=== PATIENT | male | born 1970 | race Caucasian/White ===

== ENCOUNTER 2016-12-28 16:55 | Emergency (ER) | payer SELFPAY ==
[~2016-12-28] VITALS: Ht 182.9 cm; Wt 102.3 kg
[~2016-12-28 16:55] MED LIST: ACET1TAB84 PO
[2016-12-28 17:01] VITALS: TEMP 36.6; Ht 182.9 cm; Wt 102.3 kg
[2016-12-28] MEDS ORDERED: SODIUM CHLORIDE 0.9% 1000ML 2,000 ML IV STA (17:18)
[2016-12-28] MEDS ORDERED: KETOROLAC TROMETHAMINE 30 MG/ML VIAL IV STA (17:18)
[2016-12-28] MEDS ORDERED: ONDANSETRON INJ 2 MG/ML 2 ML VIAL IV STA (17:18)
[2016-12-28 17:41] LABS: BASO % 0.1 %; BASO ABS # 0.02 K/uL (0-0.2); COMPLETE YES; EOS % 0.3 %; HEMATOCRIT 47.2 % (42-52); IG% 0.3 %; LYMPH ABS # 1.08 K/uL (1.2-3.4); MEAN CELL VOLUME 97.3 fL (80-100); MEAN CORPUSCULAR HEMOGLOBIN 33.6 pg (25-34); MEAN CORPUSCULAR HGB CONC 34.5 g/dl (32-36); MEAN PLATELET VOLUME 10.1 fL (7.4-10.4); MONO % 6.9 %; NEUT % 85.4 %; PLATELET COUNT 324 K/uL (130-400); RED BLOOD COUNT 4.85 M/uL (4.7-6.1); WHITE BLOOD COUNT 15.48 K/uL (4.8-10.8)
[2016-12-28] MEDS ORDERED: IBUP-103 PO (17:48)
[2016-12-28 17:54] LABS: URINE APPEARANCE CLEAR (CLEAR); URINE COLOR DK YELLOW; URINE NITRITE NEG (NEG); URINE SPECIFIC GRAVITY 1.031 (1.000-1.030); UROBILINOGEN NEG (NEG); ZZUR CULT IF INDIC CLEAN CATCH NO
[2016-12-28 17:57] LABS: MANUAL MICROSCOPIC REQUIRED? NO; REVIEW REQ? NO; URINE BILIRUBIN NEG (NEG)
[2016-12-28 18:04] LABS: BUN/CREATININE RATIO 16.1 (10-20); CALCIUM 9.5 mg/dl (8.5-10.1); CREATININE 1.07 mg/dl (0.60-1.40); POTASSIUM 3.7 mmol/L (3.5-5.1)
--- NOTE | 2016-12-28 18:23 | DIAGNOSTIC IMAGING REPORT ---
CT OF THE ABDOMEN AND PELVIS WITHOUT CONTRAST CLINICAL HISTORY: Left flank pain, nausea and vomiting. COMPARISON STUDY: CT of the abdomen and pelvis January 17, 2015 and KUB January 31, 2015. TECHNIQUE: Axial images of the abdomen and pelvis were obtained without IV contrast. Images were reviewed in the axial, sagittal, and coronal planes. A dose lowering technique was utilized adhering to the principles of ALARA. FINDINGS: Note is made of a 2 mm calculus within the lower pole of the right kidney. No ureteral calculi are present and there is no hydronephrosis. Note is made of mild infiltration adjacent to the distal stomach with apparent wall thickening of the distal gastric antrum and the pylorus. There is no free air or abscess. Low attenuation bilateral adrenal nodules are unchanged since CT of January 17, 2015 represent adenomas. There is no biliary or pancreatic ductal dilatation. No peripancreatic fluid collections are present. The appendix is normal. There is no evidence for a bowel obstruction. There is trace fluid within the pelvis. There is severe osteoarthritis of the left hip. No pelvic or abdominal lymphadenopathy is present. A 4 mm subpleural right lower lobe nodule is unchanged since CT of January 17, 2015 and is therefore benign. IMPRESSION: 1. Mild perigastric infiltration with apparent wall thickening of the gastric antrum and pylorus. The findings suggest gastritis. No free air. 2. 2 mm right renal calculus. No ureteral calculi or hydronephrosis. 3. Severe osteoarthritis of the left hip. Electronically signed by: Anton Singh M.D. 12/28/2016 6:22 PM Dictated Date/Time: 12/28/2016 6:12 PM
[2016-12-28] MEDS ORDERED: ONDA4TAB65 PO (18:42)
[2016-12-28] MEDS ORDERED: FAMO20TA11 PO (18:43)
[2016-12-28 18:49] VITALS: BP 141/82; PULSE 79; O2SAT 99
--- NOTE | 2016-12-28 18:57 | EMERGENCY ROOM VISIT NOTE ---
History Report prepared by Javi: Adri Bailey Under the Supervision of: Dr. Law Lei D.O. First contact with patient: 17:04 Chief Complaint: KIDNEY STONE Stated Complaint: VOMITING, KIDNEY STONE LT SIDE, NAUSEA History of Present Illness The patient is a 46 year old male who presents to the Emergency Room with complaints of constant left flank pain beginning 10 days ago. The patient states that he has a history of kidney stones and had one last 2 years ago that was 9mm and felt the same with his symptoms today. He reports that he has had a cough and runny nose and developed nausea and vomiting 1 week ago. He notes that he has not been able to keep food or liquids down and has been constipated for about 1 week. The patient complains of dehydration, abdominal cramping, and urinating dark yellow urine. He denies any fever and dysuria and notes that his last bowel movement was 1 week ago. He has 2 other family members that are sick with similar symptoms. Source of History: patient Onset: 10 days ago Position: other (left flank) Timing: constant Associated Symptoms: + cough, + nausea, + vomiting, + abdominal pain, + urinary symptoms, No fevers Review of Systems See HPI for pertinent positives & negatives. A total of 10 systems reviewed and were otherwise negative. Past Medical & Surgical Medical Problems: (1) Kidney stone Family History Diabetes mellitus FH: colon cancer Hypertension Social History Smoking Status: Current Every Day Smoker Alcohol Use: other Drug Use: none Marital Status: Occupation Status: employed Current/Historical Medications Scheduled Famotidine (Pepcid), 20 MG PO DAILY Ondansetron Hcl (Zofran), 4 MG PO TID Scheduled PRN Acetaminophen (Tylenol Arthritis Ext Rel), 650 MG PO UD PRN for Pain Ibuprofen Tab (Advil), 600 MG PO Q6H PRN for Pain Allergies Coded Allergies: No Known Allergies (Unverified , 02/01/15) Physical Exam Vital Signs Date Time Temp Pulse Resp B/P (MAP) Pulse Ox O2 Delivery O2 Flow Rate FiO2 12/28/16 18:49 79 18 141/82 99 12/28/16 17:01 36.6 83 18 125/83 99 Room Air Physical Exam GENERAL: Sitting up in bed, alert, well appearing, well nourished, no distress, non-toxic EYE EXAM: normal conjunctiva. OROPHARYNX: no exudate, no erythema, lips, buccal mucosa, and tongue normal and mucous membranes are moist NECK: supple, no nuchal rigidity, no adenopathy, non-tender LUNGS: Clear to auscultation. Normal chest wall mechanics HEART: no murmurs, S1 normal and S2 normal ABDOMEN: abdomen soft, minimal tenderness in left lower back tracking into left abdomen, normo-active bowel sounds, no masses, no rebound or guarding. BACK: Back is symmetrical on inspection and there is no deformity, no midline tenderness, no CVA tenderness. SKIN: no rashes and no bruising UPPER EXTREMITIES: upper extremities are grossly normal. LOWER EXTREMITIES: No pitting edema. NEURO EXAM: Normal sensorium, cranial nerves II-XII grossly intact, normal speech, no weakness of arms, no weakness of legs. ambulating without difficulty Medical Decision & Procedures ER Provider Diagnostic Interpretation: Radiology results as stated below per my review and the radiologist's interpretation: CT OF THE ABDOMEN AND PELVIS WITHOUT CONTRAST FINDINGS: Note is made of a 2 mm calculus within the lower pole of the right kidney. No ureteral calculi are present and there is no hydronephrosis. Note is made of mild infiltration adjacent to the distal stomach with apparent wall thickening of the distal gastric antrum and the pylorus. There is no free air or abscess. Low attenuation bilateral adrenal nodules are unchanged since CT of January 17, 2015 represent adenomas. There is no biliary or pancreatic ductal dilatation. No peripancreatic fluid collections are present. The appendix is normal. There is no evidence for a bowel obstruction. There is trace fluid within the pelvis. There is severe osteoarthritis of the left hip. No pelvic or abdominal lymphadenopathy is present. A 4 mm subpleural right lower lobe nodule is unchanged since CT of January 17, 2015 and is therefore benign. IMPRESSION: 1. Mild perigastric infiltration with apparent wall thickening of the gastric antrum and pylorus. The findings suggest gastritis. No free air. 2. 2 mm right renal calculus. No ureteral calculi or hydronephrosis. 3. Severe osteoarthritis of the left hip. Electronically signed by: Anton Singh M.D. 12/28/2016 6:22 PM Dictated Date/Time: 12/28/2016 6:12 PM Laboratory Results 12/28/16 17:30 Red Blood Count 4.85, Mean Corpuscular Volume 97.3, Mean Corpuscular Hemoglobin 33.6, Mean Corpuscular Hemoglobin Concent 34.5, Mean Platelet Volume 10.1, Neutrophils (%) (Auto) 85.4, Lymphocytes (%) (Auto) 7.0, Monocytes (%) (Auto) 6.9, Eosinophils (%) (Auto) 0.3, Basophils (%) (Auto) 0.1, Neutrophils # (Auto) 13.22, Lymphocytes # (Auto) 1.08, Monocytes # (Auto) 1.07, Eosinophils # (Auto) 0.05, Basophils # (Auto) 0.02 12/28/16 17:30 Test 12/28/16 17:20 12/28/16 17:30 Urine Color DK YELLOW Urine Appearance CLEAR (CLEAR) Urine pH 5.0 (4.5-7.5) Urine Specific Colt 1.031 (1.000-1.030) Urine Protein 1+ (NEG) Urine Glucose (UA) NEG (NEG) Urine Ketones 3+ (NEG) Urine Occult Blood TRACE (NEG) Urine Nitrite NEG (NEG) Urine Bilirubin NEG (NEG) Urine Urobilinogen NEG (NEG) Urine Leukocyte Esterase NEG (NEG) Urine WBC (Auto) 1-5 /hpf (0-5) Urine RBC (Auto) 0-4 /hpf (0-4) Urine Hyaline Casts (Auto) 1-5 /lpf (0-5) Urine Epithelial Cells (Auto) 5-10 /lpf (0-5) Urine Bacteria (Auto) NEG (NEG) White Blood Count 15.48 K/uL (4.8-10.8) Red Blood Count 4.85 M/uL (4.7-6.1) Hemoglobin 16.3 g/dL (14.0-18.0) Hematocrit 47.2 % (42-52) Mean Corpuscular Volume 97.3 fL (80-100) Mean Corpuscular Hemoglobin 33.6 pg (25-34) Mean Corpuscular Hemoglobin Concent 34.5 g/dl (32-36) Platelet Count 324 K/uL (130-400) Mean Platelet Volume 10.1 fL (7.4-10.4) Neutrophils (%) (Auto) 85.4 % Lymphocytes (%) (Auto) 7.0 % Monocytes (%) (Auto) 6.9 % Eosinophils (%) (Auto) 0.3 % Basophils (%) (Auto) 0.1 % Neutrophils # (Auto) 13.22 K/uL (1.4-6.5) Lymphocytes # (Auto) 1.08 K/uL (1.2-3.4) Monocytes # (Auto) 1.07 K/uL (0.11-0.59) Eosinophils # (Auto) 0.05 K/uL (0-0.5) Basophils # (Auto) 0.02 K/uL (0-0.2) RDW Standard Deviation 46.2 fL (36.4-46.3) RDW Coefficient of Variation 13.0 % (11.5-14.5) Immature Granulocyte % (Auto) 0.3 % Immature Granulocyte # (Auto) 0.04 K/uL (0.00-0.02) Anion Gap 11.0 mmol/L (3-11) Est Creatinine Clear Calc Drug Dose 104.5 ml/min Estimated GFR () 94.6 Estimated GFR (Non- 81.7 BUN/Creatinine Ratio 16.1 (10-20) Calcium Level 9.5 mg/dl (8.5-10.1) Total Bilirubin 0.5 mg/dl (0.2-1) Direct Bilirubin 0.2 mg/dl (0-0.2) Aspartate Amino Transf (AST/SGOT) 12 U/L (15-37) Alanine Aminotransferase (ALT/SGPT) 16 U/L (12-78) Alkaline Phosphatase 98 U/L (45-117) Total Protein 8.0 gm/dl (6.4-8.2) Albumin 3.9 gm/dl (3.4-5.0) Lipase 161 U/L (73-393) Laboratory results per my review. Medications Administered Medications (Trade) Dose Ordered Sig/Antonina Route Start Time Stop Time Status Last Admin Dose Admin Sodium Chloride 2,000 ml @ 999 mls/hr Q2H1M STAT IV 12/28/16 17:18 12/28/16 19:18 DC 12/28/16 17:38 999 MLS/HR Ondansetron HCl (Zofran Inj) 4 mg NOW STAT IV 12/28/16 17:18 12/28/16 17:19 DC 12/28/16 17:38 4 MG Ketorolac Tromethamine (Toradol Inj) 30 mg NOW STAT IV 12/28/16 17:18 12/28/16 17:19 DC 12/28/16 17:38 30 MG ED Course ED COURSE: Vital signs were reviewed and normal The patients medical record was reviewed The above diagnostic studies were performed and reviewed. ED treatments and interventions as stated above. 1704: The patient was evaluated in room B3. A complete history and physical examination was performed. 1718: Toradol Inj 30mg IV, Zofran Inj 4mg IV, Sodium Chloride 2000 ml @ 999 mls/ hr IV. 1856: Upon reevaluation, the patient is doing well.I discussed my findings with the patient and he understands and agrees with the treatment plan. Based on the patients age, coexisting illnesses, exam and lab findings the decision to treat as an outpatient was made. The patient remained stable while under my care. The patient appeared well at the time of discharge. Medical Decision Differential diagnoses includes but is not limited to gastritis, peptic ulcer disease, GERD, gallbladder disease, pancreatitis, small bowel obstruction, acute coronary syndrome, pericarditis, ischemic bowel, irritable bowel disease, irritable bowel syndrome, appendicitis, diverticulitis, malignancy, hernia, urinary tract infection, torsion, perforation, trauma, infectious. Patient is a 46-year-old male who presents to ER for abdominal pain associated with left flank pain. Abdominal exam was completely benign. Vitals are unremarkable. Mild leukocytosis. BMP along with LFTs, lipase, bilirubin and UA is fairly unremarkable. Favor the leukocytosis likely secondary to the vomiting. CT was negative with the exception of a gastritis. Patient was discharged with Zofran and Pepcid. I do favor the gastritis is likely secondary to the vomiting. Patient was feeling significantly better. He was discharged follow-up with PCP. Discussed with Pt concerning signs and symptoms to watch out for. Pt was instructed to follow up with their PCP and discussed with the patient their option to return to the ED at anytime for persistent or worsening symptoms. The appropriate anticipatory guidance and out-patient management, including indications for return to the emergency department, were explained at length to the patient and understood. Medication Reconcilliation Current Medication List: was personally reviewed by me Blood Pressure Screening Patient's blood pressure: Normal blood pressure Blood pressure disposition: Did not require urgent referral Impression Primary Impression: Gastritis Additional Impression: Left flank pain Scribe Attestation The scribe's documentation has been prepared under my direction and personally reviewed by me in its entirety. I confirm that the note above accurately reflects all work, treatment, procedures, and medical decision making performed by me. Departure Information Dispostion Home / Self-Care Prescriptions Famotidine (Pepcid) 20 Mg Tab 20 MG PO DAILY for 30 Days, #30 TAB Prov: Law Lei, DO 12/28/16 Ondansetron Hcl (ZOFRAN) 4 Mg Tab 4 MG PO TID for Nausea for 10 Days, #30 TAB Prov: Law Lei, DO 12/28/16 Referrals No Doctor, Assigned (PCP) Forms HOME CARE DOCUMENTATION FORM, IMPORTANT VISIT INFORMATION Patient Instructions My [facility] Additional Instructions Please follow up with your primary care doctor with in the next 24 hours. Any worsening of your symptoms, please return to the ED immediately. This includes any fevers greater than 100.4, worsening pain, chest pain, shortness breath, persistent nausea, vomiting, unable to eat or drink, or any other concerning signs or symptoms from your standpoint. Please take Zofran as needed for nausea. Problem Qualifiers Primary Impression: Gastritis Gastritis type: unspecified gastritis Chronicity: unspecified Gastritis bleeding: presence of bleeding unspecified Qualified Codes: K29.70 - Gastritis, unspecified, without bleeding
== END 2016-12-28 18:50 | disposition home or self-care (01) ==
LOC: C.EDB 16:56
DX: K29.70 Gastritis, unspecified, without bleeding (principal); R10.9 Unspecified abdominal pain; F17.200 Nicotine dependence, unspecified, uncomplicated; Z87.442 Personal history of urinary calculi; Z83.3 Family history of diabetes mellitus; Z82.49 Family history of ischemic heart disease and other diseases of the circulatory system; Z80.0 Family history of malignant neoplasm of digestive organs

== ENCOUNTER 2021-11-22 09:10 | Inpatient (IN) ==
[2021-11-22] MEDS ORDERED: FAMOTIDINE 20MG IV PUSH 20 MG/5 ML SYR IV STA (09:31)
[2021-11-22] MEDS ORDERED: SODIUM CHLORIDE 0.9% 1000ML 1,000 ML IV ONE (09:31)
[2021-11-22] MEDS ORDERED: ONDANSETRON INJ 2 MG/ML 2 ML VIAL IV STA (09:35)
[2021-11-22 10:14] LABS: Hematocrit (blood only) 47.6 % (40.1-51.0); Hemoglobin 16.1 g/dl (14.0-18.0); Mean Corpuscular Hemoglobin 34.5 pg (25.0-34.0); Mean Corpuscular Hgb Conc 33.8 g/dL (32.0-36.0); Mean Corpuscular Volume 102.1 fL (80.0-100.0); Mean Platelet Volume 9.7 fL (9.4-12.4); Platelet Count 285 K/uL (130-400); RDW Coefficient of Variation 13.4 % (11.5-14.5); RDW Standard Deviation 51.5 fL (36.4-46.3); Red Blood Count 4.66 M/uL (4.63-6.08); White Blood Count 16.23 K/ul (4.8-10.8)
[2021-11-22 10:32] LABS: Alanine Aminotransferase 8 U/L (7-52); Albumin Globulin Ratio 1.4 (0.9-2); Albumin Level 4.5 gm/dl (3.4-5.0); Alkaline Phosphatase 51 U/L (34-104); Anion Gap 13 (3-11); BUN Creatinine Ratio 19.4 (10-20); Bilirubin,Total 0.8 mg/dl (0.2-1.0); Blood Urea Nitrogen 21 mg/dl (6-23); Calcium 9.7 mg/dl (8.5-10.1); Carbon Dioxide 23 mmol/L (21-32); Chloride 102 mmol/L (98-107); Creatinine Clr Calc Pharmacy 86.8 ml/min; Est GFR (African American) 90.3 ml/min; Est GFR (Non-African American) 77.9 ml/min; Globulin 3.2 gm/dl (2.5-4.0); Glucose 176 mg/dl (70-99(Fasting)); Lipase 8 U/L (11-82); Sodium 138 mmol/L (136-145); Total Protein 7.7 gm/dl (6.0-8.3); Troponin I High Sensitivity 4.8 pg/ml (0-20)
[2021-11-22 10:32] LABS: Basophils # (auto) 0.04 K/uL (0-0.2); Basophils % (auto) 0.2 %; Immature Granulocytes # (auto) 0.06 K/uL (0.00-0.02); Immature Granulocytes % (auto) 0.4 %; Lymphocytes # (auto) 0.26 K/uL (1.2-3.4); Lymphocytes % (auto) 1.6 %; Monocytes # (auto) 0.59 K/uL (0.24-0.82); Monocytes % (auto) 3.6 %; Neutrophils # (auto) 15.28 K/uL (1.4-6.5); Neutrophils % (auto) 94.2 %
--- NOTE | 2021-11-22 10:39 | XRay Report ---
XR chest 1V portable CLINICAL HISTORY: Atypical chest pain. COMPARISON STUDY: Chest radiograph July 22, 2020. FINDINGS: There is no pneumothorax. Possible trace bilateral pleural effusions. Interstitial thickeni ng has progressed. Cardiac size is normal. Mild mediastinal widening has slightly increased. There is no lobar consolidation. IMPRESSION: 1. Progression of interstitial thickening. This favors pulmonary edema, possibly superimposed upon ch ronic lung disease. An infectious process could appear similar but is considered less likely. Radiogr aphic follow-up is recommended. 2. Slight increase in nonspecific mediastinal widening. This can be assessed on follow-up radiographs . ACT 112: Negative or not required by law. Electronically signed by: Anton Singh M.D. 11/22/2021 10:37 AM
[2021-11-22 10:45] LABS: Bilirubin Direct 0.2 mg/dl (0-0.2); Potassium 4.5 mmol/L (3.5-5.1)
[2021-11-22] MEDS ORDERED: IOVERSOL 350 MG 100mL Prefilled Syringe IV ONE (11:54)
--- NOTE | 2021-11-22 14:06 | CT Scan Report ---
CT OF THE ABDOMEN AND PELVIS WITH CONTRAST CLINICAL HISTORY: Abdominal pain, nausea and vomiting, constipation COMPARISON STUDY: None available at time of interpretation due to PACS downtime. TECHNIQUE: Following IV administration of Optiray, axial images of the abdomen and pelvis were obtain ed from the lung bases to the proximal femurs. Images were reviewed in the axial, sagittal, and coron al planes. IV contrast was administered without complication. Automated exposure control was utilize d for the study. A dose lowering technique was utilized adhering to the principles of ALARA. CT DOSE: 400.27 mGy.cm FINDINGS: Interlobular septal thickening is noted within the lung bases. Note is made of moderate pne umoperitoneum. There is a 5.4 x 4.7 cm gas and fluid containing collection along the greater curvatur e of the stomach. There is infiltration adjacent to the stomach as well. There is a possible ulcer al marisel the lesser curvature of the stomach, at or just proximal to the pylorus. No duodenal wall thicken ing is present. Trace perihepatic ascites is noted as well as trace perisplenic ascites. There is no hydronephrosis. Kidneys and pancreas are unremarkable on this exam. There is a 4 x 2.6 cm right adren al nodule. A 3.5 x 2.1 cm left adrenal nodule is present. There is no evidence for acute appendicitis . A small amount of fluid within the pelvis is noted. No colonic wall thickening is identified. There is no evidence for a small and large bowel obstruction. Left hip osteoarthritis is incidentally note d. IMPRESSION: 1. Moderate pneumoperitoneum consistent with perforated hollow viscus. The most likely source is a pe rforated gastric ulcer, as described above, particularly given a 5.4 x 4.7 cm perigastric gas and flu id containing collection. Small amount of abdominal and pelvic ascites. Findings discussed with Dr. Aleja garnett at time of dictation. 2. Bilateral adrenal nodules. Correlation with prior studies, if available, is recommended. These are indeterminate but likely benign in the absence of known malignancy. In the absence of prior studies, a short-term follow-up CT in 3-6 months could be obtained. ACT 112: Negative or not required by law. Electronically signed by: Anton Singh M.D. 11/22/2021 2:04 PM
--- NOTE | 2021-11-22 14:14 | Anesthesiology Consultation ---
Date of Service November 22, 2021 Assessment & Plan Chart Review Chart Review: Acceptable Risk for Surgery Consults Requested none History Surgery Operation Date: 11/22/21 15:00 Proposed Procedures p Exploratory Laparotomy - Kyrie Dobbs DO Height/Weight Height: 6 ft Weight: 86.3 kg Allergies Allergy/AdvReac Type Severity Reaction Status Date / Time No Known Allergies Allergy Unverified 02/22/20 12:58 Medications Home Medications Medication Instructions Recorded Confirmed Last Taken ibuprofen 200 mg tablet 600 mg PO Q6H PRN fever/pain #0 12/28/16 02/22/20 02/22/20 06:00 tabs 600 mg methylprednisolone 4 mg tablets in See Rx Instructions .Route 02/22/20 Unknown a dose pack .COMPLEX #21 ea Past Medical History Medical History Kidney stone Social History Smoking Status: Former smoker Hx Alcohol Use: Yes Hx Substance Use: Yes Physical Exam Vital Signs Last Vital Signs Temp 36.4 C L 11/22/21 09:14 Pulse 79 11/22/21 13:39 Resp 16 11/22/21 13:39 BP 148/96 H 11/22/21 13:39 Pulse Ox 96 11/22/21 13:39 O2 Del Method 11/22/21 13:39 Testing Laboratory Results 11/22/21 10:03 11/22/21 10:03
--- NOTE | 2021-11-22 14:15 | History & Physical Report ---
Date of Service November 22, 2021 Assessment & Plan (1) Pneumoperitoneum: Plan: CT images and results were personally viewed by me as well as with radiology, most likely source of his pneumoperitoneum is a gastric ulcer perforation Will admit to the surgery service, keep n.p.o. and start IV antibiotics and IV fluids We will get a hospitalist medicine consult postoperatively Will taken the operating room today for an exploratory laparotomy, possible bowel resection Consent was obtained, risk discussed including bleeding, infection, breakdown of patch repair, injury to nearby structures History of Present Illness Chief Complaint: Abdominal pain Primary Care Provider: NO PCP This is a 51-year-old male with no past medical history who presented to the ER with 2 days of sharp upper abdominal pain with radiation to the lower abdomen. He states that whenever he tried to eat or drink something he got severe pain. He does have some arthritis for which she takes Aleve and ibuprofen daily. He has never had an EGD in the past but has had a colonoscopy about 3 years ago which was normal. He does have a family history of colon cancer. He takes no medications regularly other than the NSAIDs. He denies any abdominal surgeries. He states he did have fevers and chills at home as well as nausea and some emesis. He states he quit smoking about 2 weeks ago. He is only a social drinker. Allergies Allergy/AdvReac Type Severity Reaction Status Date / Time No Known Allergies Allergy Unverified 02/22/20 12:58 Home Medications Medication Instructions Recorded Confirmed Type ibuprofen 200 mg tablet 600 mg PO Q6H PRN fever/pain #0 12/28/16 02/22/20 History tabs methylprednisolone 4 mg tablets in See Rx Instructions .Route 02/22/20 Rx a dose pack .COMPLEX #21 ea Past Med/Surg History Medical History Kidney stone Social History Smoking Status: Former smoker Hx Alcohol Use: Yes Hx Substance Use: Yes Prescribed Medications: Marijuana Feels Safe at Home: Yes Review of Systems Constitutional: + fever and + chills Eyes: no worsening vision Ear, Nose, Mouth, Throat: no hearing loss Respiratory: no cough and no dyspnea Cardiovascular: no chest pain and no dyspnea on exertion Gastrointestinal: + abdominal pain, + nausea and + vomiting; no constipation and no diarrhea/loose stools Genitourinary: no dysuria Musculoskeletal: no back pain and no neck pain Integumentary: no skin ulcer and no sores Neurologic: no headache(s) Psychiatric: no behavioral changes and no depression Hematologic / Lymphatic: no easy bleeding and no easy bruising Physical Exam Constitutional: WD/WN, vitals as above Eyes: PERRL, conjunctivae normal, anicteric sclerae ENMT: external ear and nose normal, oropharynx normal Neck: trachea midline, no thyromegaly Respiratory: normal respiratory effort, lungs clear to auscultation Cardiovascular: RRR, no murmur, no edema Gastrointestinal (Abdomen): Inspection/Auscultation: abdomen normal to inspection and + abdomen distended Percussion/Palpation: + abdomen tender (Diffusely), + guarding and abdomen soft; abdomen not rigid Musculoskeletal: no cyanosis or clubbing, extremities motor strength 5/5 Skin: no rashes, warm and dry Neurologic: PERRL, EOMI, accommodation nl, no face palsy, no dysarthria Psychiatric: A+Ox3, euthymic affect Results & Data Results & Data ([facility]) Vital Signs (Past 12 Hours) Vital Signs Temp Pulse Pulse Resp BP BP Pulse Ox 11/22/21 13:39 79 16 148/96 H 96 11/22/21 12:42 78 20 143/88 H 96 11/22/21 11:00 71 95 11/22/21 11:00 151/79 H 11/22/21 10:30 68 20 95 11/22/21 10:30 139/79 11/22/21 10:00 68 20 96 11/22/21 10:00 150/93 H 11/22/21 09:30 68 20 94 11/22/21 09:30 147/86 H 11/22/21 09:23 82 20 95 11/22/21 09:47 70 20 95 11/22/21 09:47 68 20 147/86 H 95 11/22/21 09:18 96 11/22/21 09:14 36.4 C L 76 16 148/88 H 96 O2 Del Method 11/22/21 13:39 Room Air 11/22/21 12:42 Room Air 11/22/21 11:00 11/22/21 11:00 11/22/21 10:30 10/08/22 10:30 11/22/21 10:00 11/22/21 10:00 11/22/21 09:30 11/22/21 09:30 11/22/21 09:23 11/22/21 09:47 Room Air 11/22/21 09:47 Room Air 11/22/21 09:18 Room Air 11/22/21 09:14 Room Air Diagnostic Findings CT OF THE ABDOMEN AND PELVIS WITH CONTRAST CLINICAL HISTORY: Abdominal pain, nausea and vomiting, constipation COMPARISON STUDY: None available at time of interpretation due to PACS downtime. TECHNIQUE: Following IV administration of Optiray, axial images of the abdomen and pelvis were obtained from the lung bases to the proximal femurs. Images were reviewed in the axial, sagittal, and coronal planes. IV contrast was administered without complication. Automated exposure control was utilized for the study. A dose lowering technique was utilized adhering to the principles of ALARA. CT DOSE: 400.27 mGy.cm FINDINGS: Interlobular septal thickening is noted within the lung bases. Note is made of moderate pneumoperitoneum. There is a 5.4 x 4.7 cm gas and fluid containing collection along the greater curvature of the stomach. There is infiltration adjacent to the stomach as well. There is a possible ulcer along the lesser curvature of the stomach, at or just proximal to the pylorus. No duodenal wall thickening is present. Trace perihepatic ascites is noted as well as trace perisplenic ascites. There is no hydronephrosis. Kidneys and pancreas are unremarkable on this exam. There is a 4 x 2.6 cm right adrenal nodule. A 3.5 x 2.1 cm left adrenal nodule is present. There is no evidence for acute appen dicitis. A small amount of fluid within the pelvis is noted. No colonic wall thickening is identified. There is no evidence for a small and large bowel obstruction. Left hip osteoarthritis is incidentally noted. IMPRESSION: 1. Moderate pneumoperitoneum consistent with perforated hollow viscus. The most likely source is a perforated gastric ulcer, as described above, particularly given a 5.4 x 4.7 cm perigastric gas and fluid containing collection. Small amount of abdominal and pelvic ascites. Findings discussed with Dr. Dobbs at time of dictation. 2. Bilateral adrenal nodules. Correlation with prior studies, if available, is recommended. These are indeterminate but likely benign in the absence of known malignancy. In the absence of prior studies, a short-term follow-up CT in 3-6 mo nths could be obtained. PG Care Time/CCT Total # of Minutes Spent Total Time Spent with Patient: Total time spent is greater than 50% in coordination of care (as documented) at patient's floor/unit and/or counseling patient: Coding Level of Care Code 37437 Initial Inpt Care Lvl 3 Diagnoses Pneumoperitoneum K66.8
[2021-11-22] MEDS ORDERED: PIPERACILLIN/TAZOBACTAM 3.375 GM in DEXTROSE 5% 100 ML/100 ML BAG IV STA (14:36)
[2021-11-22] MEDS ORDERED: SODIUM CHLORIDE 0.9% 1000ML 1,000 ML IV SCH (14:45)
[2021-11-22] MEDS ORDERED: ROCURONIUM BROMIDE 10 MG/ML 5 ML VIAL IV ONE (14:51)
[2021-11-22] MEDS ORDERED: ONDANSETRON INJ 2 MG/ML 2 ML VIAL ONE (14:51)
[2021-11-22] MEDS ORDERED: MIDAZOLAM HCL 1 MG/ML 2ML VIAL ONE (14:51)
[2021-11-22] MEDS ORDERED: fentaNYL citrate 100 MCG/2 ML VIAL ONE ×3 (14:51→17:28)
[2021-11-22] MEDS ORDERED: PROPOFOL IV EMULSION 10 MG/ML 20 ML VIAL IV ONE (14:51)
[2021-11-22] MEDS ORDERED: LIDOCAINE 2% MPF LOCAL 5 ML VIAL INFIL ONE (14:51)
[2021-11-22] MEDS ORDERED: NEOSTIGMINE METHYLSULFATE 1 MG/ML 10ML VIAL ONE (14:52)
[2021-11-22] MEDS ORDERED: GLYCOPYRROLATE 0.2 MG/ML VIAL ONE (14:52)
[2021-11-22] MEDS ORDERED: BUPIVACAINE/EPINEPHRINE 0.25% 1:200,000 30 ML VIAL ONE (14:57)
[2021-11-22] MEDS ORDERED: ONDANSETRON INJ 2 MG/ML 2 ML VIAL IV PRN ×2 (15:19→17:13)
[2021-11-22] MEDS ORDERED: PROMETHAZINE HCL 12.5 MG in SODIUM CHLORIDE 0.9% 50 ML IV PRN ×2 (15:19→17:13)
[2021-11-22] MEDS ORDERED: ATROPINE SULFATE 0.1 MG/ML 10ML SYR IV PRN (15:19)
[2021-11-22] MEDS ORDERED: ePHEDrine sulfate 50 MG/ML AMP IV PRN (15:19)
[2021-11-22] MEDS ORDERED: HYDROmorphone INJ 2 MG/ML SYR/VIAL IV PRN (15:19)
--- NOTE | 2021-11-22 15:54 | Emergency Department Note ---
Impression & Plan Pneumoperitoneum, Perforated gastric ulcer, Nausea and vomiting ED Provider Note NAME: ANTONIO POLANCO AGE: 51 SEX: M ARRIVES VIA: Ambulance INFORMANT: Patient ED PROVIDER(S): Lam Stanton MD CHIEF COMPLAINT: Abdominal pain PLAN: Disposition: Admit MEDICAL DECISION MAKING: The patient is a pleasant 51-year-old gentleman who presents to the emergency department for evaluation of worsening abdominal pain with nausea and vomiting that began 2 days ago and describes having brown emesis. He reports he has not moved his bowels for several days but this is not abnormal for him. Pain is worse with eating. He has a history of diverticulitis in the abdominal hernia. He denies any fevers or urinary symptoms. He reports remote history of alcohol use but has not for many years. He reports he does smoke marijuana fairly regularly. He denies history of abdominal surgeries. On arrival patient is uncomfortable but no acute distress, afebrile stable vital signs. He has moderate generalized abdominal tenderness, more prominent in the upper abdomen guarding or rebound. WBC 16.2K. H/H within normal limits. Platelets within normal limits. Chemistry without metabolic acidosis. Electrolytes and LFTs without significant normality. High-sensitivity troponin 4.8, within normal limits. Lipase within normal limits. COVID-19 RNA, ROBERT test was negative. EKG without overt acute ischemia. Chest x-ray was performed though due to PACS downtime was unable to be viewed initially. CT of the abdomen pelvis was also performed but due to PACS downtime was unable to be immediately viewed. Appreciate evaluation by general surgery, Dr. Dobbs, who reviewed the CT imaging with radiology where moderate pneumoperitoneum was seen consistent with perforated hollow viscus with likely source of a perforated gastric ulcer. and evaluated the patient and consented for surgery/OR. Triage Nursing notes reviewed and agree them. Prior medical records reviewed Vital Signs: reviewed and remarkable for no significant abnormalities Differential diagnosis: Appendicitis, testicular torsion, infections, diverticulitis, UTI, obstruction, mesenteric ischemia, aortic pathology, inflammatory bowel disease, renal colic, PUD, pancreatitis, biliary pathology, hernia, volvulus, constipation, as well as other pathologies. ER treatment provided: See below. Diagnostics interpreted by me: ECG: Normal sinus rhythm, 68 bpm, left anterior fascicular block, no overt ST elevation depression, QTC 410, QRS 100. Cardiac Monitoring: An order for continuous cardiac monitoring was placed and demonstrated Normal sinus rhythm, 68 bpm, no ectopy. Laboratory studies: See below Imaging studies: See below Consultation(s): General surgery, Dr. Dobbs. HPI: The patient is a pleasant 51-year-old gentleman who presents to the emergency department for evaluation of worsening abdominal pain with nausea and vomiting that began 2 days ago and describes having brown emesis. He reports he has not moved his bowels for several days but this is not abnormal for him. Pain is worse with eating. He has a history of diverticulitis in the abdominal hernia. He denies any fevers or urinary symptoms. He reports remote history of alcohol use but has not for many years. He reports he does smoke marijuana fairly regularly. He denies history of abdominal surgeries. ROS: See above HPI for pertinent positives & negatives. A total of 10 systems reviewed and were otherwise negative. VITALS:See Below PHYSICAL EXAMINATION: GENERAL: Awake, alert, uncomfortable-appearing, in no distress HENT: Normocephalic, atraumatic. Oropharynx with dry mucous membranes and otherwise unremarkable. EYES: Normal conjunctiva. Sclera non-icteric. NECK: Supple. No nuchal rigidity. FROM. No JVD. RESPIRATORY: Clear to auscultation. CARDIAC: Regular rate, normal rhythm. Extremities warm and well perfused. Pulses equal. ABDOMEN: Soft, non-distended. Moderate generalized abdominal tenderness, more prominent in the upper abdomen guarding or rebound. RECTAL: Deferred. MUSCULOSKELETAL: Chest examination reveals no tenderness. The back is symmetrical on inspection without obvious abnormality. There is no CVA tenderness to palpation. No joint edema. LOWER EXTREMITIES: Calves are equal size bilaterally and non-tender. No edema. No discoloration. NEURO: Normal sensorium. No sensory or motor deficits noted. SKIN: No rash or jaundice noted. ED COURSE: Critical Care: I have personally spent greater than 35 minutes of critical care time in the direct management of this patient. This includes bedside care, interpretation of diagnostic studies, and testing, discussion with consultants, patient, and family members, and other required patient management activities. This 35 minutes is in excess of all separately billable procedures. 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 Beliefs That Will Affect Care: None Current Living Situation: Alone Other Information That Helps Us Care for You: No Feels Safe at Home: Yes Safety Concerns: Feels Safe At This Time Assistive Devices: Glasses Allergies Allergies Allergy/AdvReac Type Severity Reaction Status Date / Time No Known Allergies Allergy Verified 11/22/21 14:55 Home Meds Home Medications Medication Instructions Recorded Confirmed ibuprofen 200 mg tablet 400 - 600 mg PO DIRECTED PRN 12/28/16 11/22/21 BODY ACHES #0 tabs acetaminophen 500 mg tablet 1,000 - 1,500 mg PO DIRECTED 11/22/21 11/22/21 (Tylenol Extra Strength) PRN HEADACHE/TOOTHACHE naproxen 220 mg-diphenhydramine 25 2 tab PO DIRECTED PRN BODY ACHES 11/22/21 11/22/21 mg tablet (Aleve PM) Results & Data (ED) Vital Signs Vital Signs - 24 hr 11/22/21 09:14 11/22/21 09:18 11/22/21 09:47 Temperature 36.4 C L Temperature Source Oral Pulse Rate 76 Pulse Rate [Apical] 68 Pulse Rate from SpO2 Sensor Pulse Rhythm [Apical] Pulse Strength [Apical] Respiratory Rate 16 20 Respiratory Effort / Characteristics Non-Labored Spontaneous Respiratory Depth Normal Respiratory Pattern Regular Blood Pressure 148/88 H Blood Pressure [Right Arm] 147/86 H Blood Pressure Mean 108 Blood Pressure Mean [Right Arm] 106 Blood Pressure Position [Right Arm] Pulse Oximetry 96 96 95 Oxygen Delivery Method Room Air Room Air Room Air Oxygen Flow Rate Sepsis Recent Fever Within 48 Hours No Sepsis New/Unexplained Change in Mental Status No Sepsis Action Taken by Nursing No Action Required 11/22/21 09:47 11/22/21 09:23 11/22/21 09:30 Temperature Temperature Source Pulse Rate 70 82 Pulse Rate [Apical] Pulse Rate from SpO2 Sensor 80 Pulse Rhythm [Apical] Pulse Strength [Apical] Respiratory Rate 20 20 Respiratory Effort / Characteristics Respiratory Depth Respiratory Pattern Blood Pressure 147/86 H Blood Pressure [Right Arm] Blood Pressure Mean 106 Blood Pressure Mean [Right Arm] Blood Pressure Position [Right Arm] Pulse Oximetry 95 95 Oxygen Delivery Method Room Air Oxygen Flow Rate Sepsis Recent Fever Within 48 Hours Sepsis New/Unexplained Change in Mental Status Sepsis Action Taken by Nursing 11/22/21 09:30 11/22/21 10:00 11/22/21 10:00 Temperature Temperature Source Pulse Rate 68 68 Pulse Rate [Apical] Pulse Rate from SpO2 Sensor 68 68 Pulse Rhythm [Apical] Pulse Strength [Apical] Respiratory Rate 20 20 Respiratory Effort / Characteristics Respiratory Depth Respiratory Pattern Blood Pressure 150/93 H Blood Pressure [Right Arm] Blood Pressure Mean 112 Blood Pressure Mean [Right Arm] Blood Pressure Position [Right Arm] Pulse Oximetry 94 96 Oxygen Delivery Method Oxygen Flow Rate Sepsis Recent Fever Within 48 Hours Sepsis New/Unexplained Change in Mental Status Sepsis Action Taken by Nursing 11/22/21 10:30 11/22/21 10:30 11/22/21 11:00 Temperature Temperature Source Pulse Rate 68 Pulse Rate [Apical] Pulse Rate from SpO2 Sensor 69 Pulse Rhythm [Apical] Pulse Strength [Apical] Respiratory Rate 20 Respiratory Effort / Characteristics Respiratory Depth Respiratory Pattern Blood Pressure 139/79 151/79 H Blood Pressure [Right Arm] Blood Pressure Mean 99 103 Blood Pressure Mean [Right Arm] Blood Pressure Position [Right Arm] Pulse Oximetry 95 Oxygen Delivery Method Oxygen Flow Rate Sepsis Recent Fever Within 48 Hours Sepsis New/Unexplained Change in Mental Status Sepsis Action Taken by Nursing 11/22/21 11:00 11/22/21 12:42 11/22/21 13:39 Temperature Temperature Source Pulse Rate 71 Pulse Rate [Apical] 78 79 Pulse Rate from SpO2 Sensor 71 Pulse Rhythm [Apical] Regular Pulse Strength [Apical] Normal Respiratory Rate 20 16 Respiratory Effort / Characteristics Non-Labored Spontaneous Non-Labored Spontaneous Respiratory Depth Normal Normal Respiratory Pattern Blood Pressure Blood Pressure [Right Arm] 143/88 H 148/96 H Blood Pressure Mean Blood Pressure Mean [Right Arm] 106 113 Blood Pressure Position [Right Arm] Pulse Oximetry 95 96 96 Oxygen Delivery Method Room Air Room Air Oxygen Flow Rate Sepsis Recent Fever Within 48 Hours Sepsis New/Unexplained Change in Mental Status Sepsis Action Taken by Nursing 11/22/21 17:16 Temperature 36 C L Temperature Source Temporal Artery Scan Pulse Rate Pulse Rate [Apical] 73 Pulse Rate from SpO2 Sensor Pulse Rhythm [Apical] Regular Pulse Strength [Apical] Normal Respiratory Rate 15 Respiratory Effort / Characteristics Non-Labored Spontaneous Accessory Muscle Use Respiratory Depth Normal Respiratory Pattern Blood Pressure Blood Pressure [Right Arm] 148/84 H Blood Pressure Mean Blood Pressure Mean [Right Arm] 105 Blood Pressure Position [Right Arm] Semi-fowlers Pulse Oximetry 98 Oxygen Delivery Method Oxygen Flow Rate 6 Sepsis Recent Fever Within 48 Hours Sepsis New/Unexplained Change in Mental Status Sepsis Action Taken by Nursing Laboratory Data Attestation: I reviewed the patient's lab results. Result diagrams: 11/22/21 17:58 11/22/21 17:58 Lab Results 11/22/21 11/22/21 11/22/21 Range/Units 09:22 09: 10:03 WBC Cancelled 16.23 H RBC Cancelled 4.66 Hgb Cancelled 16.1 Hct Cancelled 47.6 MCV Cancelled 102.1 H MCH Cancelled 34.5 H MCHC Cancelled 33.8 RDW Std Deviation Cancelled 51.5 H RDW Coeff of Justin Cancelled 13.4 Plt Count Cancelled 285 MPV Cancelled 9.7 Immature Gran % (Auto) Cancelled 0.4 Neut % (Auto) Cancelled 94.2 Lymph % (Auto) Cancelled 1.6 [place] % (Auto) Cancelled 3.6 Eos % (Auto) Cancelled 0.0 Baso % (Auto) Cancelled 0.2 Neut # (Auto) Cancelled 15.28 H Lymph # (Auto) Cancelled 0.26 L [place] # (Auto) Cancelled 0.59 Eos # (Auto) Cancelled 0.00 Baso # (Auto) Cancelled 0.04 Immature Gran # (Auto) Cancelled 0.06 H Absolute Nucleated RBC Cancelled Nucleated RBC % (auto) Cancelled Neutrophils % (Manual) Cancelled Band Neutrophils % Cancelled Lymphocytes % (Manual) Cancelled Prolymphocyte % Cancelled Reactive Lymphs % (Man) Cancelled Monocytes % (Manual) Cancelled Eosinophils % (Manual) Cancelled Basophils % (Manual) Cancelled Metamyelocytes % (Man) Cancelled Myelocytes % (Man) Cancelled Promyelocytes % (Man) Cancelled Blast Cells % (Manual) Cancelled Plasma Cell % (Manual) Cancelled Other Cells % Cancelled Nucleated RBC % Cancelled Neutrophils # (Manual) Cancelled Band Neutrophils # Cancelled Total Absolute Neuts Cancelled Lymphocytes # (Manual) Cancelled Prolymphocyte # Cancelled Reactive Lymphs # Cancelled Total Abs Lymphocytes Cancelled Monocytes # (Manual) Cancelled Eosinophils # (Manual) Cancelled Basophils # (Manual) Cancelled Metamyelocytes # (Man) Cancelled Myelocytes # (Manual) Cancelled Promyelocytes # (Man) Cancelled Blast Cells # (Man) Cancelled Plasma Cell # (Manual) Cancelled Other Cells # Cancelled Nucleated RBCs # (Man) Cancelled Hypersegmented Neuts Cancelled Hyposegmented Neuts Cancelled Hypogranular Neuts Cancelled Large Granular Lymphs Cancelled # Lrg Granular Lymphs Cancelled Hairy Cells Cancelled Smudge Cells Cancelled Toxic Granulation Cancelled Toxic Vacuolation Cancelled Dohle Bodies Cancelled Geovanni Rods Cancelled Platelet Estimate Cancelled Hypogranular Platelets Cancelled Clumped Platelets Cancelled Giant Platelets Cancelled Platelet Satelliting Cancelled RBC Morphology Cancelled Polychromasia Cancelled Hypochromasia Cancelled Poikilocytosis Cancelled Basophilic Stippling Cancelled Anisocytosis Cancelled Microcytosis Cancelled Macrocytosis Cancelled Spherocytes Cancelled Pappenheimer Bodies Cancelled Sickle Cells Cancelled Target Cells Cancelled Tear Drop Cells Cancelled Ovalocytes Cancelled Stomatocytes Cancelled Avilez-Centerview Bodies Cancelled Echinocytes Cancelled Acanthocytes (Spur) Cancelled Rouleaux Cancelled RBC Agglutinates Cancelled Schistocytes Cancelled Sezary Cell Cancelled Sodium 138 (136-145) mmol/L Potassium TNP Chloride 102 (98-107) mmol/L Carbon Dioxide 23 (21-32) mmol/L Anion Gap 13 H (3-11) BUN 21 (6-23) mg/dl Creatinine 1.08 (0.6-1.4) mg/dl Est Cr Clr Drug Dosing 86.8 ml/min Est GFR ( Amer) 90.3 ml/min Est GFR (Non-Af Amer) 77.9 ml/min BUN/Creatinine Ratio 19.4 (10-20) Glucose 176 H (70-99(Fasting)) mg/dl Calcium 9.7 (8.5-10.1) mg/dl Total Bilirubin 0.8 (0.2-1.0) mg/dl Direct Bilirubin TNP AST TNP ALT 8 (7-52) U/L Alkaline Phosphatase 51 (34-104) U/L Troponin I High Sens 4.8 (0-20) pg/ml Total Protein 7.7 (6.0-8.3) gm/dl Albumin 4.5 (3.4-5.0) gm/dl Globulin 3.2 (2.5-4.0) gm/dl Albumin/Globulin Ratio 1.4 (0.9-2) Lipase 8 L (11-82) U/L SARS-CoV-2, RNA, NAAT (NEGATIVE) Blood Parasites ID Cancelled 11/22/21 11/22/21 Range/Units 10:03 14:00 WBC RBC Hgb Hct MCV MCH MCHC RDW Std Deviation RDW Coeff of Justin Plt Count MPV Immature Gran % (Auto) Neut % (Auto) Lymph % (Auto) [place] % (Auto) Eos % (Auto) Baso % (Auto) Neut # (Auto) Lymph # (Auto) [place] # (Auto) Eos # (Auto) Baso # (Auto) Immature Gran # (Auto) Absolute Nucleated RBC Nucleated RBC % (auto) Neutrophils % (Manual) Band Neutrophils % Lymphocytes % (Manual) Prolymphocyte % Reactive Lymphs % (Man) Monocytes % (Manual) Eosinophils % (Manual) Basophils % (Manual) Metamyelocytes % (Man) Myelocytes % (Man) Promyelocytes % (Man) Blast Cells % (Manual) Plasma Cell % (Manual) Other Cells % Nucleated RBC % Neutrophils # (Manual) Band Neutrophils # Total Absolute Neuts Lymphocytes # (Manual) Prolymphocyte # Reactive Lymphs # Total Abs Lymphocytes Monocytes # (Manual) Eosinophils # (Manual) Basophils # (Manual) Metamyelocytes # (Man) Myelocytes # (Manual) Promyelocytes # (Man) Blast Cells # (Man) Plasma Cell # (Manual) Other Cells # Nucleated RBCs # (Man) Hypersegmented Neuts Hyposegmented Neuts Hypogranular Neuts Large Granular Lymphs # Lrg Granular Lymphs Hairy Cells Smudge Cells Toxic Granulation Toxic Vacuolation Dohle Bodies Geovanni Rods Platelet Estimate Hypogranular Platelets Clumped Platelets Giant Platelets Platelet Satelliting RBC Morphology Polychromasia Hypochromasia Poikilocytosis Basophilic Stippling Anisocytosis Microcytosis Macrocytosis Spherocytes Pappenheimer Bodies Sickle Cells Target Cells Tear Drop Cells Ovalocytes Stomatocytes Avilez-Centerview Bodies Echinocytes Acanthocytes (Spur) Rouleaux RBC Agglutinates Schistocytes Sezary Cell Sodium (136-145) mmol/L Potassium 4.5 Chloride (98-107) mmol/L Carbon Dioxide (21-32) mmol/L Anion Gap (3-11) BUN (6-23) mg/dl Creatinine (0.6-1.4) mg/dl Est Cr Clr Drug Dosing ml/min Est GFR ( Amer) ml/min Est GFR (Non-Af Amer) ml/min BUN/Creatinine Ratio (10-20) Glucose (70-99(Fasting)) mg/dl Calcium (8.5-10.1) mg/dl Total Bilirubin (0.2-1.0) mg/dl Direct Bilirubin 0.2 AST 12 L ALT (7-52) U/L Alkaline Phosphatase (34-104) U/L Troponin I High Sens (0-20) pg/ml Total Protein (6.0-8.3) gm/dl Albumin (3.4-5.0) gm/dl Globulin (2.5-4.0) gm/dl Albumin/Globulin Ratio (0.9-2) Lipase (11-82) U/L SARS-CoV-2, RNA, NAAT NEGATIVE (NEGATIVE) Blood Parasites ID Administered Medications Pantoprazole Sodium 40 mg/ (Syringe) 10 mls @ 5 mls/min IV BID TRISTON Stop: 12/22/21 20:59 Last Admin: 11/22/21 21:20 Dose: 5 mls/min Documented By: RAMILA Acetaminophen (Ofirmev) 1,000 mg in 100 mls @ 400 mls/hr IV Q8H TRISTON Stop: 12/22/21 17:44 Last Infusion: 11/22/21 20:01 Dose: 0 mls/hr Documented By: Admin: 11/22/21 19:46 Dose: 400 mls/hr Documented By: RAMILA Dextrose/Lactated Ringer's (D5w And Lactated Ringers) 1,000 mls @ 125 mls/hr IV .Q8H TRISTON Stop: 11/23/21 11:44 Last Admin: 11/22/21 19:45 Dose: 125 mls/hr Documented By: RAMILA Piperacillin Sod/Tazobactam (Sod 3.375 gm/ Dextrose) 115 mls @ 28.75 mls/hr IV Q8H [facility]; Protocol Stop: 12/02/21 20:59 Last Admin: 11/22/21 21:03 Dose: 28.8 mls/hr Documented By: RAMILA Morphine Sulfate (Morphine Sulfate 4 Mg/Ml 1 Ml Carp\Vial) 4 mg IV Q3H PRN PRN Reason: Pain (6,7,8,9,10) Stop: 12/06/21 17:12 Last Admin: 11/22/21 21:02 Dose: 4 mg Documented By: EGS Discontinued Medications Bupivacaine HCl/Epinephrine Bitart (Bupivacaine/Epinephrine 0.25% 1:200,000 30 Ml Vial) Confirm Administered Dose 30 ml .ROUTE .STK-MED ONE Stop: 11/22/21 14:58 Last Admin: 11/22/21 16:58 Dose: 30 ml Documented By: [id number] Fentanyl Citrate (Fentanyl Citrate 100 Mcg/2 Ml Vial) 50 mcg IV Q5M PRN PRN Reason: PACU Use Only-Pain Stop: 11/22/21 23:19 Last Admin: 11/22/21 18:05 Dose: 50 mcg Documented By: Admin: 11/22/21 17:37 Dose: 50 mcg Documented By: Admin: 11/22/21 17:30 Dose: 50 mcg Documented By: Admin: 11/22/21 17:25 Dose: 50 mcg Documented By: SER Fentanyl Citrate (Fentanyl Citrate 100 Mcg/2 Ml Vial) Confirm Administered Dose 100 mcg .ROUTE .STK-MED ONE Stop: 11/22/21 17:26 Last Admin: 11/22/21 18:06 Dose: Not Given Documented By: SER Fentanyl Citrate (Fentanyl Citrate 100 Mcg/2 Ml Vial) Confirm Administered Dose 100 mcg .ROUTE .STK-MED ONE Stop: 11/22/21 17:29 Last Admin: 11/22/21 18:06 Dose: Not Given Documented By: SER Sodium Chloride (Nss 1000ml) 1,000 mls @ 999 mls/hr IV .Q1H1M ONE Stop: 11/22/21 10:31 Last Infusion: 11/22/21 11:00 Dose: 0 mls/hr Documented By: Admin: 11/22/21 09:45 Dose: 999 mls/hr Documented By: CHAVO Famotidine (Pepcid 20mg Iv Push) 20 mg in 5 mls @ 2.5 mls/min IV NOW STA Stop: 11/22/21 09:32 Last Admin: 11/22/21 09:44 Dose: 2.5 mls/min Documented By: CHAVO Piperacillin Sod/Tazobactam (Sod 3.375 gm/ Dextrose) 100 ml in 115 mls @ 230 mls/hr IV NOW STA Stop: 11/22/21 15:05 Last Admin: 11/22/21 19:48 Dose: Not Given Documented By: RAMILA Sodium Chloride (Nss 1000ml) 1,000 mls @ 125 mls/hr IV .Q8H [facility] Stop: 12/22/21 14:44 Last Admin: 11/22/21 20:00 Dose: Not Given Documented By: RAMILA Ioversol (Ioversol 350 Mg 100ml Prefilled Syringe) 95 ml IV ONCE ONE Stop: 11/22/21 11:55 Last Admin: 11/22/21 11:54 Dose: 95 ml Documented By: KIMBERLY Miscellaneous (Surgicel Absorb Hemostat 2in X 14in) 1 each TOP ONCE ONE Stop: 11/22/21 16:39 Last Admin: 11/22/21 16:39 Dose: 1 each Documented By: [id number] Ondansetron HCl (Ondansetron Inj 2 Mg/Ml 2 Ml Vial) 4 mg IV NOW STA Stop: 11/22/21 09:36 Last Admin: 11/22/21 09:45 Dose: 4 mg Documented By: CHAVO Imaging Data Radiologist's Impression: Abdomen/Pelvis CT 11/22/21 10:46 CT OF THE ABDOMEN AND PELVIS WITH CONTRAST CLINICAL HISTORY: Abdominal pain, nausea and vomiting, constipation COMPARISON STUDY: None available at time of interpretation due to PACS downtime. TECHNIQUE: Following IV administration of Optiray, axial images of the abdomen and pelvis were obtained from the lung bases to the proximal femurs. Images were reviewed in the axial, sagittal, and coronal planes. IV contrast was administered without complication. Automated exposure control was utilized for the study. A dose lowering technique was utilized adhering to the principles of ALARA. CT DOSE: 400.27 mGy.cm FINDINGS: Interlobular septal thickening is noted within the lung bases. Note is made of moderate pneumoperitoneum. There is a 5.4 x 4.7 cm gas and fluid containing collection along the greater curvature of the stomach. There is infiltration adjacent to the stomach as well. There is a possible ulcer along the lesser curvature of the stomach, at or just proximal to the pylorus. No duodenal wall thickening is present. Trace perihepatic ascites is noted as well as trace perisplenic ascites. There is no hydronephrosis. Kidneys and pancreas are unremarkable on this exam. There is a 4 x 2.6 cm right adrenal nodule. A 3.5 x 2.1 cm left adrenal nodule is present. There is no evidence for acute appendicitis. A small amount of fluid within the pelvis is noted. No colonic wall thickening is identified. There is no evidence for a small and large bowel obstruction. Left hip osteoarthritis is incidentally noted. IMPRESSION: 1. Moderate pneumoperitoneum consistent with perforated hollow viscus. The most likely source is a perforated gastric ulcer, as described above, particularly given a 5.4 x 4.7 cm perigastric gas and fluid containing collection. Small amount of abdominal and pelvic ascites. Findings discussed with Dr. Dobbs at time of dictation. 2. Bilateral adrenal nodules. Correlation with prior studies, if available, is recommended. These are indeterminate but likely benign in the absence of known malignancy. In the absence of prior studies, a short-term follow-up CT in 3-6 months could be obtained. ACT 112: Negative or not required by law. Electronically signed by: Anton Singh M.D. 11/22/2021 2:04 PM Discharge Plan Visit Data Chief Complaint: Abdominal Pain ED Provider: Lam Stanton Discharge Problem: Pneumoperitoneum, Perforated gastric ulcer, Nausea and vomiting Discharge Instructions Interventions: ED Discharge Assessment Last Done: 11/22/21 15:00
[2021-11-22] MEDS ORDERED: DEXAMETHASONE SOD INJ 4 MG/ML VIAL ONE (16:04)
[2021-11-22] MEDS ORDERED: SURGICEL ABSORB HEMOSTAT 2IN X 14IN TOP ONE (16:38)
--- NOTE | 2021-11-22 16:46 | Electrocardiogram Report ---
Test Reason : Blood Pressure : / mmHG Vent. Rate : 068 BPM Atrial Rate : 068 BPM P-R Int : 146 ms QRS Dur : 100 ms QT Int : 386 ms P-R-T Axes : 046 -58 026 degrees QTc Int : 410 ms Poor data quality, interpretation may be adversely affected Normal sinus rhythm Possible Left atrial enlargement Left anterior fascicular block Abnormal ECG When compared with ECG of 22-FEB-2020 12:40, No significant change was found Confirmed by Stepan Lou ([id number]) on 11/22/2021 4:46:27 PM Referred By: Confirmed By:Stepan Lou
--- NOTE | 2021-11-22 17:10 | Post Operative Brief Note ---
PG Immediate Post Op with CF Date of Surgery November 22, 2021 Pre & Post Diagnosis Operation Date: 11/22/21 15:00 Pre-Op Diagnosis: Pneumoperitoneum Post-Op Diagnosis: Pneumoperitoneum, perforated gastric ulcer posterior lesser curvature I identified the patient and participated in the time-out.: Yes Procedure Operation Date: 11/22/21 15:00 Actual Procedures p Exploratory Laparotomy, Omental Patch Repair of Perforated Gastric Ulcer - Kyrie Dobbs DO Surgeon Kyrie Dobbs DO Lighting Technician Brionna Swan PA-C Estimated Blood Loss 50 Findings See Below 8 mm perforation of the posterior lesser curvature the stomach Specimens Specimen Description: Culture 1. Peritoneal Fluid Drains Kyrie Drain (19fr) and Huerta Catheter (huerta catheter inserted without difficulty by Lana Monteiro RN. Urine return was clear, amado.) Anesthesia Type General Complications none Disposition Disposition: Recovery Room
--- NOTE | 2021-11-22 17:18 | Operative Report ---
PG Post Operative Report Pre & Post Diagnosis Operation Date: 11/22/21 15:00 Pre-Op Diagnosis: Pneumoperitoneum Post-Op Diagnosis: Pneumoperitoneum, perforation of the posterior lesser curvature the stomach I identified the patient and participated in the time-out.: Yes Procedure Operation Date: 11/22/21 15:00 Actual Procedures p Exploratory Laparotomy, Omental Patch Repair of Perforated Gastric Ulcer - Kyrie Dobbs DO Surgeon Kyrie Dobbs DO Glass Mold Repairer Brionna Swan PA-C Estimated Blood Loss 50 Findings See Below 8 mm perforation of the posterior aspect on the lesser curvature the stomach Specimens None Anesthesia Type General Complications none Disposition Disposition: Recovery Room Indications 51-year-old male with history of heavy NSAID use and CT findings showing pneumoperitoneum and likely perforated gastric/duodenal ulcer Description of Procedure The patient was brought to the OR and placed in the supine position with both arms abducted. At this time he underwent general endotracheal anesthesia without any problems. He was given appropriate pre-operative antibiotics. His abdomen was prepped and draped in the usual sterile fashion. Timeout was called. The procedure was verified as Exploratory laparotomy, possible bowel resection, Surgical, anesthesia and nursing teams agreed and the procedure was begun. A standard upper midline incision was made using a #10 blade scalpel. This was carried down to the fascia using electrocautery. The midline fascia was then incised with electrocautery. The peritoneum was then entered bluntly. The incision was then opened up through its entirety. The falciform ligament was tied off using 3-0 Vicryl. At this point the stomach was inspected along the anterior portion of it and no perforation was found. There seem to be a fair amount of purulent fluid coming from up in the left upper quadrant near the GE junction. Traction was placed on the stomach and this was suctioned out revealing no perforation at this point. Then along the lesser curvature of the stomach the gastrohepatic ligament was opened and purulent fluid was found. An 8 mm perforation on the posterior aspect of the lesser curvature the stomach was identified. At this point a well vascularized tongue of omentum was mobilized using LigaSure device and placed over top of the perforation. This was sutured lightly into place with 2-0 silk suture to form an omental patch. At this point the wound was then irrigated until clear. There appeared to be some blood- tinged fluid coming from the left upper quadrant. At this point the spleen was inspected and a 5 mm capsular tear was seen with some oozing. Surgicel was placed in this area. There was no active bleeding after Surgicel was placed. The abdomen was then washed out with multiple warm liters of saline. Hemostasis was achieved using electrocautery. Hemostasis was complete. A 19 Khmer Kyrie drain was introduced through a stab incision in the left upper quadrant of the abdomen and placed along the lesser curvature of the stomach as well as up into the left upper quadrant. This was secured in place with 2-0 nylon suture. The fascia was then closed in a running fashion using 2 #1 looped PDS suture starting superiorly and inferiorly and meeting in the middle. Skin was closed with che. Sterile dressing was applied. All needle and sponge counts were correct x 2. At this point the patient was awakened from anesthesia, and transported to PACU in stable condition. The physician's perinatal breastfeeding assistant was present and scrubbed for the entirety of the case. He was critical in positioning the patient, prepping and draping, retraction and exposure, closure of the incision and placement of the dressings. I attest to the content of the Intraoperative Record and any orders documented therein. Any exceptions are noted below.
[2021-11-22] MEDS: fentaNYL citrate 100 MCG/2 ML VIAL IV PRN ×4 (17:25→18:05)
[2021-11-22] MEDS ORDERED: ACETAMINOPHEN 10MG/ML Custom 1,000 MG in EMPTY BAG 0 ML IV SCH (17:30)
[2021-11-22 18:06] LABS: Hemoglobin 15.4 g/dl (14.0-18.0); Mean Corpuscular Hemoglobin 34.6 pg (25.0-34.0); Mean Corpuscular Volume 98.9 fL (80.0-100.0); Mean Platelet Volume 9.8 fL (9.4-12.4); Platelet Count 241 K/uL (130-400); RDW Coefficient of Variation 13.5 % (11.5-14.5); RDW Standard Deviation 49.3 fL (36.4-46.3); Red Blood Count 4.45 M/uL (4.63-6.08); White Blood Count 14.07 K/ul (4.8-10.8)
--- NOTE | 2021-11-22 18:23 | Anesthesiology Progress Note ---
Date of Service November 22, 2021 Anesthesia Post Procedure Vital Signs Vital Signs: Temp Pulse Pulse Resp BP BP Pulse Ox 11/22/21 17:35 76 20 117/66 97 11/22/21 17:25 67 24 140/78 97 11/22/21 17:16 36 C L 73 15 148/84 H 98 11/22/21 13:39 79 16 148/96 H 96 11/22/21 12:42 78 20 143/88 H 96 11/22/21 11:00 71 95 11/22/21 11:00 151/79 H 11/22/21 10:30 68 20 95 11/22/21 10:30 139/79 11/22/21 10:00 68 20 96 11/22/21 10:00 150/93 H 11/22/21 09:30 68 20 94 11/22/21 09:30 147/86 H 11/22/21 09:23 82 20 95 11/22/21 09:47 70 20 95 11/22/21 09:47 68 20 147/86 H 95 11/22/21 09:18 96 11/22/21 09:14 36.4 C L 76 16 148/88 H 96 O2 Del Method O2 Flow Rate 11/22/21 17:35 6 11/22/21 17:25 6 11/22/21 17:16 6 11/22/21 13:39 Room Air 11/22/21 12:42 Room Air 11/22/21 11:00 11/22/21 11:00 11/22/21 10:30 11/22/21 10:30 11/22/21 10:00 11/22/21 10:00 11/22/21 09:30 11/22/21 09:30 11/22/21 09:23 11/22/21 09:47 Room Air 11/22/21 09:47 Room Air 11/22/21 09:18 Room Air 11/22/21 09:14 Room Air Pain Intensity Abdomen: Pain Intensity: 3 Transfer of Care Handoff Completed per policy Notes Mental Status: alert / awake / arousable and participated in evaluation Patient Amnestic to Procedure: Yes Nausea / Vomiting: adequately controlled Pain: adequately controlled Airway Patency, RR, SpO2: stable & adequate BP & HR: stable & adequate Hydration State: stable & adequate Anesthetic Complications: no major complications apparent
[2021-11-22 18:32] LABS: BUN Creatinine Ratio 23.3 (10-20); Calcium 8.4 mg/dl (8.5-10.1); Est GFR (African American) 114.7 ml/min; Potassium 4.2 mmol/L (3.5-5.1)
[2021-11-22 18:35] LABS: Basophils # (auto) 0.03 K/uL (0-0.2); Basophils % (auto) 0.2 %; Immature Granulocytes # (auto) 0.03 K/uL (0.00-0.02); Immature Granulocytes % (auto) 0.2 %; Lymphocytes # (auto) 0.34 K/uL (1.2-3.4); Lymphocytes % (auto) 2.4 %; Monocytes # (auto) 0.69 K/uL (0.24-0.82); Monocytes % (auto) 4.9 %; Neutrophils # (auto) 12.98 K/uL (1.4-6.5); Neutrophils % (auto) 92.3 %
--- NOTE | 2021-11-22 19:30 | Hospitalist Consultation ---
Date of Consultation November 22, 2021 Assessment & Plan (1) Perforated gastric ulcer: 51 y/o M -History is limited to possible osteoarthritis for which he frequently takes NSAIDS. He presented with severe upper abdominal pain exacerbated by any PO intake. Imaging in the ER demonstrated pneumoperitoneum. he was evaluated by surgery and transferred to the OR promptly. An x-lap was performed which revealed a perforated gastric ulcer. This was repaired with an omental patch. We are asked to consult post-op. Labs are unremarkable aside form leukocytosis. He was placed on Zosyn and a PPi. Vital signs are excellent post-op. 1) Gastric ulcer perforation - post-op. The pt is placed on IVF, antibiotics (Zosyn) and a PPi. Initiation of PO intake and anticoagulation is at he discretion of surgery. In the absnece of a complete resection, this can normally start 1-2 days post-op. 2) Gastric ulcer - cont PPi at least for a few months - advised on NSAIDS and smoking/ETOH although he recently quit both. 3) He would benefit from better outpt management of his arthritis which is predominantly in his LLE. The medical service will assess clinically and follow daily labs pending DC. Total time for this consult including review of labs, meds, imaging, records - discussion with pt and review of surgical notes - 36 min History of Present Illness Reason for Consultation: Post-op Omental Patch Repair of Perforated Gastric Ulcer Requesting Physician: Orthopedic service - Rinku Attending Physician: Kyrie Dobbs, DO History of Present Illness 51 y/o M -History is limited to possible osteoarthritis for which he frequently takes NSAIDS. He presented with severe upper abdominal pain exacerbated by any PO intake. Imaging in the ER demonstrated pneumoperitoneum. he was evaluated by surgery and transferred to the OR promptly. An x-lap was performed which r evealed a perforated gastric ulcer. This was repaired with an omental patch. We are asked to consult post-op. Labs are unremarkable aside form leukocytosis. He was placed on Zosyn and a PPi. Vital signs are excellent post-op. PMH: Limited to osteoarthritis which affects his RLE primarily - takes both Aleve and Ibuprofen frequently. Surgical: Kassieapnell removed from LLE in [facility]. Social: Works for [employer]. [employer]. Quit smoking 1 month prior. Quit drinking 4 months prior and admits to excessive intake before then Family: Father - colon CA Mother alive with severe dementia Allergies Allergy/AdvReac Type Severity Reaction Status Date / Time No Known Allergies Allergy Verified 11/22/21 14:55 Home Medications Medication Instructions Recorded Confirmed Type ibuprofen 200 mg tablet 400 - 600 mg PO DIRECTED PRN 12/28/16 11/22/21 History BODY ACHES #0 tabs acetaminophen 500 mg tablet 1,000 - 1,500 mg PO DIRECTED 11/22/21 11/22/21 History (Tylenol Extra Strength) PRN HEADACHE/TOOTHACHE naproxen 220 mg-diphenhydramine 25 2 tab PO DIRECTED PRN BODY ACHES 11/22/21 11/22/21 History mg tablet (Aleve PM) Patient History Medical History Kidney stone Family History Other Family history non-contributory Social History Smoking Status: Former smoker Hx Alcohol Use: Yes Hx Substance Use: Yes Prescribed Medications: Marijuana Feels Safe at Home: Yes Review of Systems Review of Systems: Gen: Denies fevers, night sweats, rigors, fatigue, malaise, weight loss/gain ENT: Denies congestion, throat pain, hearing loss Eyes: Denies acute visual changes CV: Denies CP, palpitations Pulmonary: Denies SOB, cough, wheezing GI: Expected post-op pain/discomfort Neuro: Denies acute or unilateral weakness, acute gait impairment, headache or acute visual changes Musculoskeletal: Denies joint pain, inflammation Endocrine: Denies polydipsia, polyuria Skin: Denies acute rashes or ulcers Physical Exam Physical Exam: General: Pleasant, middle-aged M, AAO x 3, no distress ENT: No erythema or exudates, no thrush Eyes: DOMINGUEZ, EOMI Head and neck: Normocephalic, atraumatic, No JVD, neck is supple. Chest/heart: Nontender, S1,2, RRR, no murmurs, no gallops Lungs: CTAB, no wheezing or crackles Abdomen: Drain on upper L - did not palpate deeply Neuro: AAO x 3, speech is clear, no unilateral weakness or loss of sensation, coordination intact Musculoskeletal: No joint inflammation, muscle tenderness, FROM Skin: No acute rashes or ulcers Extremities: No clubbing, cyanosis, edema Results & Data Results & Data ([facility]) Vital Signs (Past 12 Hours) Vital Signs Temp Pulse Pulse Pulse Resp BP BP 11/22/21 19:05 97.5 F L 71 18 135/78 11/22/21 18:25 70 20 136/84 11/22/21 18:15 98.4 F 76 20 138/87 11/22/21 18:05 70 17 137/84 11/22/21 17:55 80 19 141/85 H 11/22/21 17:45 87 22 160/94 H 11/22/21 18:37 98.6 F 77 17 135/81 11/22/21 17:35 76 20 117/66 11/22/21 17:25 67 24 140/78 11/22/21 17:16 96.8 F L 73 15 148/84 H 11/22/21 13:39 79 16 148/96 H 11/22/21 12:42 78 20 143/88 H 11/22/21 11:00 71 11/22/21 11:00 151/79 H 11/22/21 10:30 68 20 11/22/21 10:30 139/79 11/22/21 10:00 68 20 11/22/21 10:00 150/93 H 11/22/21 09:30 68 20 11/22/21 09:30 147/86 H 11/22/21 09:23 82 20 11/22/21 09:47 70 20 11/22/21 09:47 68 20 147/86 H 11/22/21 09:18 11/22/21 09:14 97.5 F L 76 16 148/88 H Pulse Ox O2 Del Method O2 Flow Rate 11/22/21 19:05 98 Oxymask 4.0 11/22/21 18:25 98 Oxymask 4 11/22/21 18:15 96 Oxymask 4 11/22/21 18:05 96 Oxymask 4 11/22/21 17:55 95 Oxymask 4 11/22/21 17:45 93 Oxymask 4 11/22/21 18:37 95 Oxymask 11/22/21 17:35 97 6 11/22/21 17:25 97 6 11/22/21 17:16 98 6 11/22/21 13:39 96 Room Air 11/22/21 12:42 96 Room Air 11/22/21 11:00 95 11/22/21 11:00 11/22/21 10:30 95 11/22/21 10:30 11/22/21 10:00 96 11/22/21 10:00 11/22/21 09:30 94 11/22/21 09:30 11/22/21 09:23 95 11/22/21 09:47 95 Room Air 11/22/21 09:47 95 Room Air 11/22/21 09:18 96 Room Air 11/22/21 09:14 96 Room Air PG Care Time/CCT Total # of Minutes Spent Total Time Spent with Patient: Total time spent is greater than 50% in coordination of care (as documented) at patient's floor/unit and/or counseling patient: Coding Level of Care Code 12501 Inpt Consult Level 3 Diagnoses Perforated gastric ulcer K25.5
--- NOTE | 2021-11-22 19:35 | XRay Report ---
KUB CLINICAL HISTORY: NG placement COMPARISON STUDY: CT of the abdomen and pelvis performed earlier today. FINDINGS: Skin che are noted. Tip of nasogastric tube projects over the pylorus. Surgical drain i s in place. There are no unexpected radiopaque foreign bodies. IMPRESSION: 1. Tip of nasogastric tube projects over the pylorus. 2. Surgical drain in place following laparotomy. ACT 112: Negative or not required by law. Electronically signed by: Anton Singh M.D. 11/22/2021 7:34 PM
[2021-11-22] MEDS: D5W AND LACTATED RINGERS 1,000 ML IV SCH (19:45)
[2021-11-22] MEDS: ACETAMINOPHEN 1,000 MG/100 ML VIAL IV SCH (19:46)
[2021-11-22] MEDS: MoRPHine SULFATE 4 MG/ML 1 ML CARP\\VIAL IV PRN (21:02)
[2021-11-22] MEDS: PIPERACILLIN/TAZOBACTAM 3.375 GM in DEXTROSE 5% 100 ML IV SCH (21:03)
[2021-11-22] MEDS: PANTOprazole 40 MG in SYRINGE 0 ML IV SCH (21:20)
[2021-11-23] MEDS: MoRPHine SULFATE 4 MG/ML 1 ML CARP\\VIAL IV PRN (01:05)
[2021-11-23 01:35] LABS: Hematocrit (blood only) 44.5 % (40.1-51.0); Hemoglobin 15.3 g/dl (14.0-18.0); Mean Corpuscular Hemoglobin 34.5 pg (25.0-34.0); Mean Corpuscular Hgb Conc 34.4 g/dL (32.0-36.0); Mean Corpuscular Volume 100.5 fL (80.0-100.0); Platelet Count 247 K/uL (130-400); RDW Coefficient of Variation 13.7 % (11.5-14.5); RDW Standard Deviation 50.6 fL (36.4-46.3); Red Blood Count 4.43 M/uL (4.63-6.08); White Blood Count 14.68 K/ul (4.8-10.8)
[2021-11-23 02:21] LABS: Albumin Globulin Ratio 1.4 (0.9-2); Albumin Level 3.4 gm/dl (3.4-5.0); Bilirubin,Total 0.8 mg/dl (0.2-1.0); Calcium 8.4 mg/dl (8.5-10.1); Creatinine Clr Calc Pharmacy 117.2 ml/min; Est GFR (African American) 118.2 ml/min; Globulin 2.4 gm/dl (2.5-4.0); Magnesium 1.7 mg/dl (1.7-2.4); Potassium 4.6 mmol/L (3.5-5.1); Total Protein 5.8 gm/dl (6.0-8.3)
[2021-11-23 02:33] LABS: Basophils # (auto) 0.04 K/uL (0-0.2); Basophils % (auto) 0.3 %; Immature Granulocytes # (auto) 0.05 K/uL (0.00-0.02); Immature Granulocytes % (auto) 0.3 %; Lymphocytes % (auto) 4.1 %; Monocytes # (auto) 0.93 K/uL (0.24-0.82); Monocytes % (auto) 6.3 %; Neutrophils # (auto) 13.06 K/uL (1.4-6.5)
[2021-11-23] MEDS: ACETAMINOPHEN 1,000 MG/100 ML VIAL IV SCH ×3 (03:54→20:48)
[2021-11-23] MEDS: D5W AND LACTATED RINGERS 1,000 ML IV SCH (03:54)
[2021-11-23] MEDS: PIPERACILLIN/TAZOBACTAM 3.375 GM in DEXTROSE 5% 100 ML IV SCH ×3 (04:58→20:49)
--- NOTE | 2021-11-23 07:25 | XRay Report ---
KUB CLINICAL HISTORY: confirm NG placement COMPARISON STUDY: KUB November 22, 2021 at 6:10 PM. FINDINGS: Skin che from laparotomy are noted. A surgical drain within the upper abdomen is presen t. Tip of nasogastric tube is within the body of the stomach. Left basilar airspace opacity is incide ntally noted. IMPRESSION: Tip of nasogastric tube within the body of the stomach. ACT 112: Negative or not required by law. Electronically signed by: Anton Singh M.D. 11/23/2021 7:24 AM
[2021-11-23] MEDS: PANTOprazole 40 MG in SYRINGE 0 ML IV SCH ×2 (08:21→21:01)
[2021-11-23] MEDS: MoRPHine SULFATE 2 MG/ML CARP IV PRN ×2 (08:29→18:20)
--- NOTE | 2021-11-23 09:52 | Surgery Progress Note ---
Date of Service November 23, 2021 Assessment & Plan (1) Perforated gastric ulcer: Plan: seen with Dr. Rinku zazueta NG, do not manipulate or reposition d/c huerta on Zosyn labs stable will start Lovenox tomorrow Admission and Anticipated Discharge Date Admission Date: November 22, 2021 Supervising Physician Co-Signing Physician Notes I personally saw and evaluated the patient with Drew Knox PA-C and agree with assessment and plan. 51-year-old male postoperative day 1 exploratory laparotomy repair of perforated gastric ulcer with omental patch Overall he looks well and has good urine output Will DC Huerta today Keep NG tube in place, do not manipulate unless instructed by surgery Keep abdominal drain to bulb suction We will continue Zosyn and Protonix Encourages incentive spirometry If his hemoglobin remained stable we will start Lovenox 40 mg subcu tomorrow Subjective pain control adequate, no other c/o Physical Exam Constitutional: WD/WN, vitals as above Gastrointestinal (Abdomen): Inspection/Auscultation: + abdominal surgical incision (dressing dry) and + abdominal surgical drain present (mostly serous); abdomen not distended Percussion/Palpation: abdomen soft minimal NG output, some blood in tubing Results & Data ([facility]) Vital Signs (Past 12 Hours) Vital Signs Temp Pulse Resp BP Pulse Ox O2 Del Method 11/23/21 07:17 37.1 C 70 16 136/78 95 Room Air 11/23/21 03:10 37.0 C 72 18 135/80 96 Room Air PG Care Time/CCT Total # of Minutes Spent Total Time Spent with Patient: Total time spent is greater than 50% in coordination of care (as documented) at patient's floor/unit and/or counseling patient: Coding Level of Care Code None Diagnoses Perforated gastric ulcer K25.5
[2021-11-23] MEDS: NICOTINE 14 MG/24 HR PATCH TD SCH (11:24)
[2021-11-23] MEDS: SODIUM CHLORIDE 0.9% 1000ML 1,000 ML IV SCH (13:30)
--- NOTE | 2021-11-23 21:09 | Hospitalist Progress Note ---
Date of Service November 23, 2021 Assessment & Plan (1) Perforated gastric ulcer: Plan: 51 y/o M -History is limited to possible osteoarthritis for which he frequently takes NSAIDS. He presented with severe upper abdominal pain exacerbated by any PO intake. Imaging in the ER demonstrated pneumoperitoneum. he was evaluated by surgery and transferred to the OR promptly. An x-lap was performed which revealed a perforated gastric ulcer. This was repaired with an omental patch. We are asked to consult post-op. Labs are unremarkable aside form leukocytosis. He was placed on Zosyn and a PPi. Vital signs are excellent post-op. 1) Gastric ulcer perforation - post-op. -willncontinue IVF, PPI, and antibiotics. continue NG tube. Initiation of PO intake and anticoagulation is at he discretion of surgery. In the absnece of a complete resection, this can normally start 1-2 days post-op. 2) Gastric ulcer - cont PPi at least for a few months - advised on NSAIDS and smoking/ETOH although he recently quit both. 3) He would benefit from better outpt management of his arthritis which is predominantly in his LLE. Admission and Anticipated Discharge Date Admission Date: November 22, 2021 Subjective 51 yo male reports no new symptoms today. Review of Systems Review of Systems: All systems reviewed & are unremarkable except as noted in HPI & below Physical Exam Physical Exam: General: Pleasant, middle-aged M, AAO x 3, no distress ENT: No erythema or exudates, no thrush Eyes: DOMINGUEZ, EOMI Head and neck: Normocephalic, atraumatic, No JVD, neck is supple. Chest/heart: Nontender, S1,2, RRR, no murmurs, no gallops Lungs: CTAB, no wheezing or crackles Abdomen: Drain on upper L - did not palpate deeply Neuro: AAO x 3, speech is clear, no unilateral weakness or loss of sensation, coordination intact Musculoskeletal: No joint inflammation, muscle tenderness, FROM Skin: No acute rashes or ulcers Extremities: No clubbing, cyanosis, edema Results & Data Results & Data ([facility]) Vital Signs (Past 12 Hours) Vital Signs Temp Pulse Resp BP Pulse Ox O2 Del Method 11/23/21 15:02 36.6 C 66 16 163/88 H 96 Room Air PG Care Time/CCT Total # of Minutes Spent Total Time Spent with Patient: Total time spent is greater than 50% in coordination of care (as documented) at patient's floor/unit and/or counseling patient: Coding Level of Care Code 13527 Subseq Hosp Care Lvl 2 Diagnoses Perforated gastric ulcer K25.5 Time Spent (min) 25
[2021-11-24] MEDS: SODIUM CHLORIDE 0.9% 1000ML 1,000 ML IV SCH (02:29)
[2021-11-24] MEDS: ACETAMINOPHEN 1,000 MG/100 ML VIAL IV SCH ×3 (05:01→19:45)
[2021-11-24] MEDS: PIPERACILLIN/TAZOBACTAM 3.375 GM in DEXTROSE 5% 100 ML IV SCH ×3 (05:01→21:10)
[2021-11-24 06:15] LABS: Basophils # (auto) 0.03 K/uL (0-0.2); Basophils % (auto) 0.2 %; Eosinophils # (auto) 0.02 K/uL (0-0.50); Eosinophils % (auto) 0.1 %; Hematocrit (blood only) 42.6 % (40.1-51.0); Hemoglobin 14.4 g/dl (14.0-18.0); Immature Granulocytes # (auto) 0.09 K/uL (0.00-0.02); Immature Granulocytes % (auto) 0.6 %; Lymphocytes # (auto) 0.86 K/uL (1.2-3.4); Lymphocytes % (auto) 6.1 %; Mean Corpuscular Hemoglobin 34.3 pg (25.0-34.0); Mean Corpuscular Hgb Conc 33.8 g/dL (32.0-36.0); Mean Corpuscular Volume 101.4 fL (80.0-100.0); Mean Platelet Volume 10.1 fL (9.4-12.4); Monocytes # (auto) 0.86 K/uL (0.24-0.82); Monocytes % (auto) 6.1 %; Neutrophils % (auto) 86.9 %; Platelet Count 247 K/uL (130-400); RDW Coefficient of Variation 13.8 % (11.5-14.5); RDW Standard Deviation 51.7 fL (36.4-46.3); White Blood Count 14.06 K/ul (4.8-10.8)
[2021-11-24 06:50] LABS: Albumin Globulin Ratio 1.1 (0.9-2); Albumin Level 3.3 gm/dl (3.4-5.0); BUN Creatinine Ratio 19.8 (10-20); Bilirubin,Total 0.7 mg/dl (0.2-1.0); Calcium 8.3 mg/dl (8.5-10.1); Est GFR (African American) 111.1 ml/min; Est GFR (Non-African American) 95.9 ml/min; Globulin 2.9 gm/dl (2.5-4.0); Total Protein 6.2 gm/dl (6.0-8.3)
[2021-11-24] MEDS: NICOTINE 14 MG/24 HR PATCH TD SCH (08:44)
[2021-11-24] MEDS: PANTOprazole 40 MG in SYRINGE 0 ML IV SCH ×2 (09:11→21:06)
--- NOTE | 2021-11-24 11:57 | Surgery Progress Note ---
Date of Service November 24, 2021 Assessment & Plan (1) Perforated gastric ulcer: Plan: seen with Dr. Dobbs keep NG, do not manipulate or reposition on Zosyn WBC remains 14, Tmax 37.4, HR normal SCDs, he refuses Lovenox due to fear of needles Admission and Anticipated Discharge Date Admission Date: November 22, 2021 Supervising Physician Co-Signing Physician Notes I personally saw and evaluated the patient with Drew Knox PA-C and agree with assessment and plan. 51-year-old male postoperative day 2 exploratory laparotomy repair of perforated gastric ulcer with omental patch Keep NG tube in place, do not manipulate unless instructed by surgery Keep abdominal drain to bulb suction We will continue Zosyn and Protonix Encourages incentive spirometry Patient adamantly refuses any Lovenox for DVT prophylaxis Was discussed this puts him at risk for DVT and PE, he is aware of this we will continue with his SCDs Subjective less pain, OOB in chair Physical Exam Gastrointestinal (Abdomen): Inspection/Auscultation: + abdomen distended (mild) and + abdominal surgical incision (dressing dry) Percussion/Palpation: abdomen soft Results & Data ([facility]) Vital Signs (Past 12 Hours) Vital Signs Temp Pulse Resp BP Pulse Ox O2 Del Method 11/24/21 11:35 36.7 C 86 16 161/89 H 96 Room Air 11/24/21 07:00 37.4 C 76 16 138/84 97 Room Air PG Care Time/CCT Total # of Minutes Spent Total Time Spent with Patient: Total time spent is greater than 50% in coordination of care (as documented) at patient's floor/unit and/or counseling patient: Coding Level of Care Code None Diagnoses Perforated gastric ulcer K25.5
[2021-11-24] MEDS: D5W AND 1/2NSS 1,000 ML IV SCH ×2 (13:09→21:04)
--- NOTE | 2021-11-24 22:09 | Hospitalist Progress Note ---
Date of Service November 24, 2021 Assessment & Plan (1) Perforated gastric ulcer: Plan: 51 y/o M -History is limited to possible osteoarthritis for which he frequently takes NSAIDS. He presented with severe upper abdominal pain exacerbated by any PO intake. Imaging in the ER demonstrated pneumoperitoneum. he was evaluated by surgery and transferred to the OR promptly. An x-lap was performed which revealed a perforated gastric ulcer. This was repaired with an omental patch. We are asked to consult post-op. Labs are unremarkable aside form leukocytosis. He was placed on Zosyn and a PPi. Vital signs are excellent post-op. 1) Gastric ulcer perforation - post-op. -will continue IVF, PPI, and antibiotics. continue NG tube. Initiation of PO intake and anticoagulation is at the discretion of surgery. In the absnece of a complete resection, this can normally start 1-2 days post- op. continue NG tube suction as per primary team tolerating fluids. monitor renal function and electrolytes. 2) Gastric ulcer - cont PPi at least for a few months - advised on NSAIDS and smoking/ETOH although he recently quit both. 3) He would benefit from better outpt management of his arthritis which is predominantly in his LLE. Admission and Anticipated Discharge Date Admission Date: November 22, 2021 Subjective Patient reports no flatulence or BM Review of Systems Review of Systems: All systems reviewed & are unremarkable except as noted in HPI & below Physical Exam Physical Exam: General: Pleasant, middle-aged M, AAO x 3, no distress ENT: No erythema or exudates, no thrush Eyes: DOMINGUEZ, EOMI Head and neck: Normocephalic, atraumatic, No JVD, neck is supple. Chest/heart: Nontender, S1,2, RRR, no murmurs, no gallops Lungs: CTAB, no wheezing or crackles Abdomen: Drain on upper L - did not palpate deeply Neuro: AAO x 3, speech is clear, no unilateral weakness or loss of sensation, coordination intact Musculoskeletal: No joint inflammation, muscle tenderness, FROM Skin: No acute rashes or ulcers Extremities: No clubbing, cyanosis, edema Results & Data Results & Data ([facility]) Vital Signs (Past 12 Hours) Vital Signs Temp Pulse Resp BP Pulse Ox O2 Del Method 11/24/21 15:19 37.3 C 82 16 152/83 H 96 Room Air 11/24/21 11:35 36.7 C 86 16 161/89 H 96 Room Air PG Care Time/CCT Total # of Minutes Spent Total Time Spent with Patient: Total time spent is greater than 50% in coordination of care (as documented) at patient's floor/unit and/or counseling patient: Coding Level of Care Code 89603 Subseq Hosp Care Lvl 2 Diagnoses Perforated gastric ulcer K25.5
[2021-11-25] MEDS: D5W AND 1/2NSS 1,000 ML IV SCH (04:38)
[2021-11-25] MEDS: ACETAMINOPHEN 1,000 MG/100 ML VIAL IV SCH ×3 (04:39→20:00)
[2021-11-25] MEDS: PIPERACILLIN/TAZOBACTAM 3.375 GM in DEXTROSE 5% 100 ML IV SCH ×3 (05:02→21:00)
[2021-11-25 06:28] LABS: Basophils # (auto) 0.02 K/uL (0-0.2); Basophils % (auto) 0.2 %; Eosinophils # (auto) 0.07 K/uL (0-0.50); Eosinophils % (auto) 0.7 %; Hemoglobin 13.7 g/dl (14.0-18.0); Immature Granulocytes # (auto) 0.06 K/uL (0.00-0.02); Immature Granulocytes % (auto) 0.6 %; Lymphocytes # (auto) 0.67 K/uL (1.2-3.4); Lymphocytes % (auto) 6.5 %; Mean Corpuscular Hemoglobin 34.3 pg (25.0-34.0); Mean Corpuscular Hgb Conc 34.3 g/dL (32.0-36.0); Mean Platelet Volume 9.6 fL (9.4-12.4); Monocytes # (auto) 0.78 K/uL (0.24-0.82); Monocytes % (auto) 7.5 %; Neutrophils # (auto) 8.77 K/uL (1.4-6.5); Neutrophils % (auto) 84.5 %; Platelet Count 244 K/uL (130-400); RDW Coefficient of Variation 13.4 % (11.5-14.5); RDW Standard Deviation 49.9 fL (36.4-46.3); White Blood Count 10.37 K/ul (4.8-10.8)
[2021-11-25 06:53] LABS: Albumin Globulin Ratio 1.2 (0.9-2); Albumin Level 3.2 gm/dl (3.4-5.0); BUN Creatinine Ratio 17.8 (10-20); Bilirubin,Total 0.8 mg/dl (0.2-1.0); Creatinine Clr Calc Pharmacy 128.4 ml/min; Est GFR (African American) 122.7 ml/min; Est GFR (Non-African American) 105.9 ml/min; Globulin 2.7 gm/dl (2.5-4.0); Potassium 3.5 mmol/L (3.5-5.1); Total Protein 5.9 gm/dl (6.0-8.3)
[2021-11-25] MEDS: NICOTINE 14 MG/24 HR PATCH TD SCH (09:58)
[2021-11-25] MEDS: D5W AND 1/2NSS + 20MEQ KCL 20 MEQ/1,000 ML BAG IV SCH ×2 (10:00→18:15)
[2021-11-25] MEDS: PANTOprazole 40 MG in SYRINGE 0 ML IV SCH ×2 (10:04→21:01)
--- NOTE | 2021-11-25 11:02 | Surgery Progress Note ---
Date of Service November 25, 2021 Assessment & Plan (1) Perforated gastric ulcer: Plan: POD [address] Dobbs keep NG, do not manipulate or reposition on Zosyn WBC down to 10 SCDs, he refuses Lovenox due to fear of needles Admission and Anticipated Discharge Date Admission Date: November 22, 2021 Supervising Physician Co-Signing Physician Notes I personally saw and evaluated the patient with Drew Knox PA-C and agree with assessment and plan. 51-year-old male postoperative day 3 exploratory laparotomy repair of perforated gastric ulcer with omental patch Keep NG tube in place, do not manipulate unless instructed by surgery Keep abdominal drain to bulb suction We will continue Zosyn and Protonix Encourages incentive spirometry Patient adamantly refuses any Lovenox for DVT prophylaxis Was discussed this puts him at risk for DVT and PE, he is aware of this we will continue with his SCDs All of his labs continue to improve We will plan on upper GI tomorrow to evaluate repair Subjective feeling better, ambulating, passing flatus Physical Exam Constitutional: WD/WN, vitals as above Gastrointestinal (Abdomen): Inspection/Auscultation: + abdomen distended (less), + abdominal surgical incision (dressing dry) and + abdominal surgical drain present (serous) Percussion/Palpation: abdomen soft Results & Data ([facility]) Vital Signs (Past 12 Hours) Vital Signs Temp Pulse Resp BP Pulse Ox O2 Del Method 11/25/21 07:32 36.5 C 77 18 155/86 H 98 Room Air PG Care Time/CCT Total # of Minutes Spent Total Time Spent with Patient: Total time spent is greater than 50% in coordination of care (as documented) at patient's floor/unit and/or counseling patient: Coding Level of Care Code None Diagnoses Perforated gastric ulcer K25.5
--- NOTE | 2021-11-25 22:15 | Hospitalist Progress Note ---
Date of Service November 25, 2021 Assessment & Plan (1) Perforated gastric ulcer: Plan: 51 y/o M -History is limited to possible osteoarthritis for which he frequently takes NSAIDS. He presented with severe upper abdominal pain exacerbated by any PO intake. Imaging in the ER demonstrated pneumoperitoneum. he was evaluated by surgery and transferred to the OR promptly. An x-lap was performed which revealed a perforated gastric ulcer. This was repaired with an omental patch. We are asked to consult post-op. Labs are unremarkable aside form leukocytosis. He was placed on Zosyn and a PPi. Vital signs are excellent post-op. 1) Gastric ulcer perforation - post-op. -will continue IVF, PPI, and antibiotics. continue NG tube on intermittent suction/ patient is now Initiation of PO intake and anticoagulation is at the discretion of surgery. In the absence of a complete resection, this can normally start 1-2 days post- op. continue NG tube suction as per primary team tolerating fluids. monitor renal function and electrolytes. 2) Gastric ulcer - cont PPi at least for a few months - advised on NSAIDS and smoking/ETOH although he recently quit both. 3) He would benefit from better outpt management of his arthritis which is predominantly in his LLE. Admission and Anticipated Discharge Date Admission Date: November 22, 2021 Subjective 51 yo male reports no new symptoms. Passing gas this AM> Review of Systems Review of Systems: All systems reviewed & are unremarkable except as noted in HPI & below Physical Exam Physical Exam: General: Pleasant, middle-aged M, AAO x 3, no distress ENT: No erythema or exudates, no thrush Eyes: DOMINGUEZ, EOMI Head and neck: Normocephalic, atraumatic, No JVD, neck is supple. Chest/heart: Nontender, S1,2, RRR, no murmurs, no gallops Lungs: CTAB, no wheezing or crackles Abdomen: Drain on upper L -remains distended. Neuro: AAO x 3, speech is clear, no unilateral weakness or loss of sensation, coordination intact Musculoskeletal: No joint inflammation, muscle tenderness, FROM Skin: No acute rashes or ulcers Extremities: No clubbing, cyanosis, edema Results & Data Results & Data ([facility]) Vital Signs (Past 12 Hours) Vital Signs Temp Pulse Resp BP Pulse Ox O2 Del Method 11/25/21 21:57 37.0 C 71 16 138/84 95 Room Air 11/25/21 15:17 37.2 C 80 18 149/67 H 95 Room Air 11/25/21 11:20 37.1 C 84 18 162/86 H 96 Room Air PG Care Time/CCT Total # of Minutes Spent Total Time Spent with Patient: Total time spent is greater than 50% in coordination of care (as documented) at patient's floor/unit and/or counseling patient: Coding Level of Care Code 19110 Subseq Hosp Care Lvl 2 Diagnoses Perforated gastric ulcer K25.5
[2021-11-26] MEDS: D5W AND 1/2NSS + 20MEQ KCL 20 MEQ/1,000 ML BAG IV SCH ×3 (03:17→19:31)
[2021-11-26] MEDS: ACETAMINOPHEN 1,000 MG/100 ML VIAL IV SCH ×3 (03:19→19:30)
[2021-11-26] MEDS: PIPERACILLIN/TAZOBACTAM 3.375 GM in DEXTROSE 5% 100 ML IV SCH ×3 (05:16→20:17)
[2021-11-26 07:41] LABS: BUN Creatinine Ratio 11.5 (10-20); Calcium 7.9 mg/dl (8.5-10.1); Creatinine Clr Calc Pharmacy 120.2 ml/min; Est GFR (African American) 119.4 ml/min; Est GFR (Non-African American) 103.1 ml/min; Potassium 3.8 mmol/L (3.5-5.1)
[2021-11-26] MEDS: NICOTINE 14 MG/24 HR PATCH TD SCH (08:07)
[2021-11-26] MEDS: PANTOprazole 40 MG in SYRINGE 0 ML IV SCH ×2 (08:58→20:17)
--- NOTE | 2021-11-26 10:25 | Surgery Progress Note ---
Date of Service November 26, 2021 Assessment & Plan (1) Perforated gastric ulcer: Plan: POD 3 repair doing well UGI later today, likely remove NG on Zosyn, Protonix SCDs, ambulating Admission and Anticipated Discharge Date Admission Date: November 22, 2021 Supervising Physician Co-Signing Physician Notes I personally saw and evaluated the patient with Drew Knox PA-C and agree with assessment and plan. 51-year-old male postoperative day 4 exploratory laparotomy repair of perforated gastric ulcer with omental patch Keep NG tube in place, do not manipulate unless instructed by surgery Keep abdominal drain to bulb suction We will continue Zosyn and Protonix Encourages incentive spirometry Patient adamantly refuses any Lovenox for DVT prophylaxis Was discussed this puts him at risk for DVT and PE, he is aware of this we will continue with his SCDs He has begun to have some return of bowel function Upper GI today to evaluate repair The area is okay we can remove his NG tube and start clear liquids Subjective bowels moving, passing flatus, ambulating, Ofirmev for pain Physical Exam Constitutional: WD/WN, vitals as above Gastrointestinal (Abdomen): Inspection/Auscultation: + abdomen distended (mild), + abdominal surgical incision (dressing intact) and + abdominal surgical drain present (15 cc serous) NG clearing, minimal overnight Results & Data ([facility]) Vital Signs (Past 12 Hours) Vital Signs Temp Pulse Resp BP Pulse Ox O2 Del Method 11/26/21 07:55 Room Air 11/26/21 07:22 36.5 C 75 16 155/82 H 97 Room Air PG Care Time/CCT Total # of Minutes Spent Total Time Spent with Patient: Total time spent is greater than 50% in coordination of care (as documented) at patient's floor/unit and/or counseling patient: Coding Level of Care Code None Diagnoses Perforated gastric ulcer K25.5
--- NOTE | 2021-11-26 13:05 | Fluoroscopy Report ---
SINGLE CONTRAST UPPER GI SERIES CLINICAL HISTORY: Perforated ulcer repair. COMPARISON STUDY: KUB November 22, [address] of the abdomen and pelvis November 22, 2021. FLUOROSCOPY TIME: 0 seconds. [Images were obtained. FLUOROSCOPIC IMAGES: 0. PROCEDURE AND FINDINGS: Initially, service line layer KUB was obtained. A single contrast upper GI series was perf ormed utilizing Optiray 320 via the NG tube. Towel Folder image demonstrates tip of nasogastric tube within the body of the stomach. There are skin che. Surgical drain is in place. There are small bilatera l pleural effusions. Opacification of the stomach and duodenum is noted. No contrast extravasation is identified to suggest a leak. The caliber of the opacified jejunum is normal. Mucosal detail is decr eased given single contrast technique. IMPRESSION: No contrast extravasation to suggest leak. ACT 112: Negative or not required by law. Electronically signed by: Anton Singh M.D. 11/26/2021 1:02 PM
[2021-11-27] MEDS: ACETAMINOPHEN 1,000 MG/100 ML VIAL IV SCH (03:15)
[2021-11-27] MEDS: D5W AND 1/2NSS + 20MEQ KCL 20 MEQ/1,000 ML BAG IV SCH ×2 (03:15→11:08)
[2021-11-27] MEDS: PIPERACILLIN/TAZOBACTAM 3.375 GM in DEXTROSE 5% 100 ML IV SCH (04:09)
[2021-11-27 07:23] LABS: Basophils # (auto) 0.02 K/uL (0-0.2); Basophils % (auto) 0.2 %; Eosinophils # (auto) 0.24 K/uL (0-0.50); Eosinophils % (auto) 2.4 %; Hematocrit (blood only) 39.1 % (40.1-51.0); Hemoglobin 13.6 g/dl (14.0-18.0); Immature Granulocytes # (auto) 0.05 K/uL (0.00-0.02); Immature Granulocytes % (auto) 0.5 %; Lymphocytes # (auto) 0.81 K/uL (1.2-3.4); Lymphocytes % (auto) 8.2 %; Mean Corpuscular Hemoglobin 34.4 pg (25.0-34.0); Mean Corpuscular Hgb Conc 34.8 g/dL (32.0-36.0); Mean Platelet Volume 9.7 fL (9.4-12.4); Monocytes % (auto) 11.2 %; Neutrophils # (auto) 7.62 K/uL (1.4-6.5); Neutrophils % (auto) 77.5 %; Platelet Count 295 K/uL (130-400); RDW Coefficient of Variation 13.4 % (11.5-14.5); RDW Standard Deviation 49.4 fL (36.4-46.3); Red Blood Count 3.95 M/uL (4.63-6.08); White Blood Count 9.84 K/ul (4.8-10.8)
[2021-11-27] MEDS: NICOTINE 14 MG/24 HR PATCH TD SCH (11:07)
[2021-11-27] MEDS: PANTOprazole 40 MG in SYRINGE 0 ML IV SCH (11:07)
--- NOTE | 2021-11-27 11:18 | Surgery Progress Note ---
Date of Service November 27, 2021 Assessment & Plan (1) Perforated gastric ulcer: Plan: Upper GI images and results personally viewed by me, no leak detected He is tolerating clears without increase in MAGALI output, will advance to full's today We will switch him over to p.o. medications He continues to refuse Lovenox for DVT prophylaxis, will keep SCDs in place Encourage ambulation/incentive spirometry We will place him on H. pylori therapy He continues to do well we will plan on discharge home tomorrow (2) Pneumoperitoneum: Admission and Anticipated Discharge Date Admission Date: November 22, 2021 Subjective Patient seen and examined. Minimal abdominal pain. He is having bowel movements. Afebrile. Is doing well and tolerating clears since NG tube removal yesterday. Physical Exam Constitutional: WD/WN, vitals as above Gastrointestinal (Abdomen): Soft, appropriately tender, midline incision with che present, no erythema or drainage MAGALI drain with serosanguineous fluid Results & Data ([facility]) Vital Signs (Past 12 Hours) Vital Signs Temp Pulse Resp BP Pulse Ox O2 Del Method 11/27/21 10:15 36.9 C 75 16 150/89 H 97 Room Air 11/27/21 08:09 36.3 C L 83 14 163/89 H 98 Room Air Diagnostic Findings SINGLE CONTRAST UPPER GI SERIES CLINICAL HISTORY: Perforated ulcer repair. COMPARISON STUDY: KUB November 22, [address] of the abdomen and pelvis November 22, 2021. FLUOROSCOPY TIME: 0 seconds. [Images were obtained. FLUOROSCOPIC IMAGES: 0. PROCEDURE AND FINDINGS: Initially, research laboratory specialist KUB was obtained. A single contrast upper GI series was performed utilizing Optiray 320 via the NG tube. Director Of Content Marketing image demonstrates tip of nasogastric tube within the body of the stomach. There are skin che. Surgical drain is in place. There are small bilateral pleural effusions. Opacification of the stomach and duodenum is noted. No contrast extravasation is identified to suggest a leak. The caliber of the opacified jejunum is normal. Mucosal detail is decreased given single contrast technique. IMPRESSION: No contrast extravasation to suggest leak. PG Care Time/CCT Total # of Minutes Spent Total Time Spent with Patient: Total time spent is greater than 50% in coordination of care (as documented) at patient's floor/unit and/or counseling patient: Coding Level of Care Code None Diagnoses Perforated gastric ulcer K25.5 Pneumoperitoneum K66.8
[2021-11-27] MEDS ORDERED: ACETAMINOPHEN 325 MG TAB PO PRN (11:21)
[2021-11-27] MEDS ORDERED: oxyCODONE HCL IR 5 MG TAB (IMMEDIATE RELEASE) PO PRN (11:25)
--- NOTE | 2021-11-27 17:36 | Hospitalist Progress Note ---
Date of Service November 27, 2021 Assessment & Plan (1) Perforated gastric ulcer: Plan: 51 y/o M -History is limited to possible osteoarthritis for which he frequently takes NSAIDS. He presented with severe upper abdominal pain exacerbated by any PO intake. Imaging in the ER demonstrated pneumoperitoneum. he was evaluated by surgery and transferred to the OR promptly. An x-lap was performed which revealed a perforated gastric ulcer. This was repaired with an omental patch. 1) Gastric ulcer perforation - post-op. NG tube removed yesterday Pain management and diet per primary surgical team H. pylori treatment started by surgery Patient refusing chemical VTE prophyalxis - discussed benefits and risk of this with the patient today Post op labs appear to be stable 2) Gastric ulcer - cont pantoprazole 40mg PO BID at least for a few months - advised on NSAIDS and smoking/ETOH although he recently quit both. Increased recent stress also likely playing a role. Recommend GI follow up once surgically cleared to discuss EGD to determine longer term PPI treatment 3) He would benefit from better outpt management of his arthritis which is predominantly in his LLE. Can follow up with his PCP for this. (2) Chronic arthritis: Plan: Avoid NSAIDs Plan Ok for discharge from medical stand point once surgically stable for discharge - planning on home tomorrow per surgery note. Thank you for the consult we will continue to follow the patient with you while he is admitted. Admission and Anticipated Discharge Date Admission Date: November 22, 2021 Subjective Patient reportedly much improved. No abdominal pain. NG tube out yesterday. Tolerating full liquid diet. Surgery planning on discharge tomorrow per note. Review of Systems Review of Systems: All systems reviewed & are unremarkable except as noted in Subjective Physical Exam Constitutional: WD/WN, vitals as above Neck: trachea midline, no thyromegaly Respiratory: normal respiratory effort, lungs clear to auscultation Cardiovascular: RRR, no murmur, no edema Gastrointestinal (Abdomen): normal bowel sounds, soft, nontender, no hepatosplenomegaly Did not palpate over surgical dressing site which appears to be clean, dry and intact, did not remove dressing Surgical drain present with serosanguinous fluid Musculoskeletal: no cyanosis or clubbing, extremities motor strength 5/5 Skin: no rashes, warm and dry Neurologic: moves all extremities and awake; not confused Psychiatric: A+Ox3, euthymic affect Results & Data Results & Data ([facility]) Vital Signs (Past 12 Hours) Vital Signs Temp Pulse Resp BP BP Pulse Ox O2 Del Method 11/27/21 14:40 36.4 C L 81 18 163/89 H 99 Room Air 11/27/21 10:15 36.9 C 75 16 150/89 H 97 Room Air 11/27/21 08:09 36.3 C L 83 14 163/89 H 98 Room Air PG Care Time/CCT Total # of Minutes Spent Total Time Spent with Patient: Total time spent is greater than 50% in coordination of care (as documented) at patient's floor/unit and/or counseling patient: Coding Level of Care Code 37219 Subseq Hosp Care Lvl 1 Diagnoses Perforated gastric ulcer K25.5 Chronic arthritis M19.90
[2021-11-27] MEDS: AMOXICILLIN 500 MG CAP PO SCH (21:12)
[2021-11-27] MEDS: CLARITHROMYCIN 500 MG TAB PO SCH (21:14)
[2021-11-27] MEDS: PANTOprazole 40 MG TAB PO SCH (21:14)
[2021-11-28 06:34] LABS: Albumin Globulin Ratio 1.1 (0.9-2); Albumin Level 3.1 gm/dl (3.4-5.0); BUN Creatinine Ratio 9.9 (10-20); Bilirubin,Total 0.7 mg/dl (0.2-1.0); Calcium 8.5 mg/dl (8.5-10.1); Creatinine Clr Calc Pharmacy 132.1 ml/min; Est GFR (African American) 124.2 ml/min; Est GFR (Non-African American) 107.1 ml/min; Globulin 2.8 gm/dl (2.5-4.0); Magnesium 1.7 mg/dl (1.7-2.4); Phosphorus 2.7 mg/dl (2.5-4.9); Total Protein 5.9 gm/dl (6.0-8.3)
[2021-11-28] MEDS: PANTOprazole 40 MG TAB PO SCH (08:28)
[2021-11-28] MEDS: CLARITHROMYCIN 500 MG TAB PO SCH (08:28)
[2021-11-28] MEDS: NICOTINE 14 MG/24 HR PATCH TD SCH (08:29)
[2021-11-28] MEDS: AMOXICILLIN 500 MG CAP PO SCH (09:11)
--- NOTE | 2021-11-28 09:24 | Surgery Progress Note ---
Date of Service November 28, 2021 Assessment & Plan (1) Perforated gastric ulcer: Plan: POD#5 repair of perforated gastric ulcer with buster patch Pt is doing well, tolerating full liquids MAGALI drain with serosang drainage. plan on sending home w/ drain, teaching to be performed Incisions c/d/i with midline che. pain controlled Will advance to low fiber diet, if tolerates will d/c after lunch Plan on completing 2 week course of triple therapy F/u with Dr. Dobbs next Wednesday in clinic for drain removal Will give pt work note. dispo instructions reviewed Admission and Anticipated Discharge Date Admission Date: November 22, 2021 Supervising Physician Co-Signing Physician Notes I personally saw and evaluated the patient with Elba Sanchez PA-C and agree with assessment and plan. 51-year-old male postoperative day 6 exploratory laparotomy repair of perforated gastric ulcer with omental patch He is tolerating full liquids without any increase in his abdominal drain output or change in character His pain is manageable with p.o. medications and he does have return of bowel function Plan will be to increase him to a low fiber diet if he tolerates this he can be discharged home today with follow-up with me next week for drain removal He will be placed on a 14-day course of PPI, clarithromycin and amoxicillin to empirically treat him for H. pylori He is to avoid NSAIDs Subjective Patient is feeling well. Tolerating full liquid diet, no nausea/vomiting. Abdominal pain is manageable. Physical Exam Physical Exam: awake/alert, no distress Gastrointestinal (Abdomen): Inspection/Auscultation: + abdomen distended (mild), + abdominal surgical incision (c/d/i with midline surgical che) and + abdominal surgical drain present (serosang output ) Percussion/Palpation: + abdomen tender (expected mild discomfort elmo-incisionally ) and abdomen soft Results & Data ([facility]) Vital Signs (Past 12 Hours) Vital Signs Temp Pulse Resp BP Pulse Ox O2 Del Method 11/28/21 07:09 36.6 C 81 18 152/87 H 97 Room Air 11/27/21 22:46 37.1 C 76 18 151/83 H 96 Room Air PG Care Time/CCT Total # of Minutes Spent Total Time Spent with Patient: Total time spent is greater than 50% in coordination of care (as documented) at patient's floor/unit and/or counseling patient: Coding Level of Care Code None Diagnoses Perforated gastric ulcer K25.5
--- NOTE | 2021-11-28 12:32 | Hospitalist Progress Note ---
Date of Service November 28, 2021 Assessment & Plan (1) Perforated gastric ulcer: Plan: 51 y/o M -History is limited to possible osteoarthritis for which he frequently takes NSAIDS. He presented with severe upper abdominal pain exacerbated by any PO intake. Imaging in the ER demonstrated pneumoperitoneum. he was evaluated by surgery and transferred to the OR promptly. An x-lap was performed which revealed a perforated gastric ulcer. This was repaired with an omental patch. 1) Gastric ulcer perforation - post-op. NG tube removed yesterday Pain management and diet per primary surgical team H. pylori treatment started by surgery Patient refusing chemical VTE prophylaxis - surgery planning on discharging today. Post op labs appear to be stable Medically stable for discharge. Discharge instructions and medications reviewed. 2) Gastric ulcer - cont pantoprazole 40mg PO BID at least for a few months - advised on NSAIDS and smoking/ETOH although he recently quit both. Increased recent stress also likely playing a role. Recommend GI follow up once surgically cleared to discuss EGD to determine longer term PPI treatment 3) He would benefit from better outpt management of his arthritis which is predominantly in his LLE. Can follow up with his PCP for this. (2) Chronic arthritis: Plan: Avoid NSAIDs (2) Chronic arthritis: Plan: Avoid NSAIDs Plan Ok for discharge from medical stand point once surgically stable for discharge - planning on home tomorrow per surgery note. Thank you for the consult we will continue to follow the patient with you while he is admitted. Admission and Anticipated Discharge Date Admission Date: November 22, 2021 Subjective No acute concerns or questions. Tolerating full diet when seen. Surgery planning on discharging today. Review of Systems Review of Systems: All systems reviewed & are unremarkable except as noted in Subjective Physical Exam Constitutional: WD/WN, vitals as above Respiratory: normal respiratory effort Cardiovascular: RRR, no murmur, no edema Gastrointestinal (Abdomen): normal bowel sounds, soft, nontender, no hepatosplenomegaly Skin: no rashes, warm and dry Neurologic: moves all extremities and awake; not confused Psychiatric: A+Ox3, euthymic affect Results & Data Results & Data ([facility]) Vital Signs (Past 12 Hours) Vital Signs Temp Pulse Resp BP Pulse Ox O2 Del Method 11/28/21 07:09 36.6 C 81 18 152/87 H 97 Room Air PG Care Time/CCT Total # of Minutes Spent Total Time Spent with Patient: Total time spent is greater than 50% in coordination of care (as documented) at patient's floor/unit and/or counseling patient: Coding Level of Care Code 12626 Subseq Hosp Care Lvl 1 Diagnoses Perforated gastric ulcer K25.5 Chronic arthritis M19.90
--- NOTE | 2021-12-11 05:03 | Coding Query ---
CODING QUERY To promote full compliance with coding requirements relating to patient care, provider participation is requested in all cases of mobile security architect uncertainty. Please assist us with the question(s) below: Coding Question(s): Pt admitted with perforated gastric ulcer, repaired with omental patch. OP stated a capsular tear of the spleen, repaired with Surgicel. Please check below the phrase that describes the spleenic capsular tear. Thanks for your help. LOLA Turner [facility] Physician's Response(s): The splenic capsular tear is an expected occurrence for this surgery The splenic capsular tear is a complication of the surgery Cannot clinically correlate if the splenic capsular tear is a complication of surgery ____x____ Other: Please document: This is something that can happen when placing traction on the colon and stomach Principal Diagnosis: "that condition established after study, to be chiefly responsible for occasioning the admission of the patient to the hospital for care." Co-Existing Principal Diagnosis: "when two or more diagnoses equally meet the criteria for principal diagnosis as determined by the circumstances of admission, diagnostic work up, and/or therapy provided, and the Alphabetic Index, Tabular List, or another coding guideline does not provide sequencing direction, any one of the diagnoses may be sequenced first." "When the physician has documented what appears to be a current diagnosis in the body of the record, but has not included the diagnosis in the final diagnostic statement, the physician should be asked whether the diagnosis should be added." (Source [facility]oding [facility] 2 QTR90. p3-4) RADHA
== END 2021-11-28 15:15 | disposition home or self-care (01) | DRG 328 ==
LOC: ED 09:10 → OR 15:00 → 3E 17:17
DX: Z88.6 Allergy status to analgesic agent; Z87.891 Personal history of nicotine dependence; K25.5 Chronic or unspecified gastric ulcer with perforation; F12.90 Cannabis use, unspecified, uncomplicated